=== PATIENT | male | born 1975 | race Caucasian/White ===

== ENCOUNTER 2016-11-01 15:58 | Inpatient (IN) | payer BC, OTHER ==
[~2016-11-01] VITALS: Ht 182.9 cm; Wt 70.0 kg
[2016-11-01] MEDS ORDERED: SODIUM CHLORIDE 0.9% 1L BAG IV* STA (20:50)
[2016-11-01] MEDS ORDERED: morphine 4 MG/ML VIAL IV STA (20:50)
[2016-11-01] MEDS ORDERED: ONDANSETRON 4 MG INJ IV STA (20:50)
[2016-11-01] MEDS ORDERED: LIDOCAINE 1%/EPI (MDV) 20 ML INJ INJ STA (20:50)
[2016-11-01] MEDS ORDERED: ACETAMINOPHEN 325 MG TAB PO ONE (21:00)
[2016-11-01 21:20] LABS: ADD UMIC YES; URINE BILIRUBIN (Dip) NEGATIVE (NEGATIVE); URINE BLOOD (Dip) 2+ (NEGATIVE); URINE COLOR LT. YELLOW (YELLOW); URINE GLUCOSE (Dip) NEGATIVE (NEGATIVE); URINE KETONES (Dip) 15 (NEGATIVE); URINE LEUKOCYTE ESTERASE (Dip) NEGATIVE (NEGATIVE); URINE NITRITE (Dip) NEGATIVE (NEGATIVE); URINE TOTAL PROTEIN (Dip) NEGATIVE (NEGATIVE); URINE UROBILINOGEN (Dip) 0.2 E.U./dL (0.1-1.0)
[2016-11-01 21:25] LABS: HEMATOCRIT 19.3 % (42.0-52.0); MEAN CORPUSCULAR HEMOGLOBIN 34.3 pg (29.0-33.0); MEAN CORPUSCULAR HGB CONC 34.1 g/dl (32.0-37.0); MEAN CORPUSCULAR VOLUME 100.6 fl (82.0-101.0); MEAN PLATELET VOLUME 7.9 fl (7.4-10.4); PLATELET COUNT 306 10^3/UL (140-440); RED BLOOD COUNT 1.91 10^6/ul (4.70-6.10); RED CELL DISTRIBUTION WIDTH 14.2 % (11.5-14.5); UNCORRECTED WBC 8.6 10^3/ul (4.8-10.8); WHITE BLOOD COUNT 8.6 10^3/ul (4.8-10.8)
[2016-11-01 21:26] LABS: ALBUMIN 3.9 g/dl (3.3-4.9)
[2016-11-01 21:27] LABS: INR 1.06; POTASSIUM 3.4 mmol/L (3.5-5.1); PROTIME 13.8 Sec (12.2-14.2); PT RATIO 1.1
[2016-11-01 21:28] LABS: PARTIAL THROMBOPLASTIN TIME 23.4 Sec (25.0-35.0)
[2016-11-01 21:29] LABS: BILIRUBIN,INDIRECT 0.3 mg/dl (0-1.1); BILIRUBIN,TOTAL 0.3 mg/dl (0.2-1.3); CONDITION 1; CREATININE 0.95 mg/dl (0.61-1.24); LH ANALYZER COMMENTS 1
[2016-11-01 21:30] LABS: ALBUMIN/GLOBULIN RATIO 1.5; CALCIUM 8.6 mg/dl (8.4-10.2); TOTAL PROTEIN 6.5 g/dl (6.1-8.1)
[2016-11-01 21:31] LABS: HEMOGLOBIN 6.6 g/dl (14.0-18.0)
[2016-11-01] MEDS ORDERED: SOD CHLORIDE 0.9% 250 ML IV ONE (21:31)
[2016-11-01 21:38] LABS: SQUAMOUS EPITHELIAL CELL,UR RARE
[2016-11-01 21:39] LABS: MUCUS,URINE FEW
--- NOTE | 2016-11-01 21:44 | RADRPT ---
PROCEDURE: XR Chest 1 View. CLINICAL INDICATION: Shortness of breath, sepsis TECHNIQUE: AP view of the chest were obtained. COMPARISON: None. FINDINGS: The cardiomediastinal silhouette is within normal limits. The lungs are hyperexpanded. No consolidat ions are identified. No pneumothorax is seen. Calcified granuloma is identified in the right lower lobe. The osseous structures are intact. Old, healed posterior right sixth rib fracture is seen. IMPRESSION: Hyperexpanded lungs. Calcified granuloma in the right lower lobe. RPTAT: AA .Ivan Sanchez MD, MD Date Time Electronically viewed and signed by .Ivan Sanchez MD, on 11/01/2016 21:43 .P/
[2016-11-01 21:46] LABS: TROPONIN-I 0.127 ng/ml (0.00-0.12)
[2016-11-01] MEDS ORDERED: CEFEPIME 2GM/50 ML (PMX) 50 ML IVPB STA (21:46)
[2016-11-01 21:59] LABS: BASOPHIL # 0.1 10^3/ul (0.0-0.1); LYMPHOCYTES # 0.9 10^3/ul (0.8-2.9); MONOCYTE # 0.5 10^3/ul (0.3-0.9); NEUTROPHIL # 6.9 10^3/ul (1.6-7.5)
[2016-11-01 22:00] LABS: PLATELET ESTIMATE PLT APPEAR ADEQUATE
[2016-11-01] MEDS ORDERED: VANCOMYCIN 1 GM (PMX) 250 ML IVPB ONE (22:00)
--- NOTE | 2016-11-01 22:22 | RADRPT ---
PROCEDURE: CT Head without. CLINICAL INDICATION: Trauma status post Fall. TECHNIQUE: The study was performed utilizing a multi-slice, multidetector CT scanner. Direct spira l 1 mm axial sections were obtained through the head without the use of intravenous contrast materia l. Coronal and sagittal reformations were obtained. The images were reviewed on a PACS workstation. RADIATION DOSE: CTDIvol: 45.0 mGyDLP: L 720.2 mGy-cm COMPARISON: No prior studies are available for comparison. FINDINGS: There is no intracranial hemorrhage, extra-axial fluid collection, mass lesion, midline shift or hyd rocephalus. The ventricles, sulci and cisterns are within normal limits. The white matter is unrem arkable. The manzo-white matter differentiation is preserved. The basal cisterns are patent. The m idline structures are intact. There is minimal soft tissue swelling in the paramedian left vertex w ithout evidence of underlying calvarial fracture. The visualized paranasal sinuses, mastoid air cell s and middle ear cavities are normally aerated. IMPRESSION: 1. No acute intracranial abnormality. No intracranial hemorrhage, extra-axial fluid collection, ma ss lesion or hydrocephalous. 2. Minimal soft tissue swelling in the left parietal vertex without evidence of underlying calvaria l fracture. RPTAT: HGAS .Aníbal Loredo MD, Date Time Electronically viewed and signed by .Aníbal Loredo MD, on 11/01/2016 22:22 .S/
[2016-11-01] MEDS ORDERED: OSELTAMIVIR 75 MG CAP PO ONE (22:30)
[2016-11-01] MEDS ORDERED: ASPIRIN 81 MG TAB PO ONE (22:30)
--- NOTE | 2016-11-01 22:51 | ERA ---
ER Documentation Chief Complaint Date/Time DATE: 11/01/16 TIME: 22:46 Chief Complaint DIZZINESS GUEVARA AND N/V HPI Patient is a 41-year-old male with alcohol abuse who presents saying "I think I have stomach flu". He said that he has had vomiting off and on for the past few days. He also has headache. Had a fever in the ER. The headache has been constant. He had a slip and fall in the shower today and hit his head twice and has dried blood. He denies abdominal pain. Upon review of old medical records this is the patient's first visit to the emergency department. He does not currently have a primary doctor. ROS All systems reviewed and are negative except as per history of present illness. Allergies Allergies: Coded Allergies: No Known Allergy (Unverified , 11/01/16) PMhx/Soc Medical and Surgical Hx: pt denies Medical Hx, pt denies Surgical Hx Hx Alcohol Use: Yes Hx Substance Use: No Hx Tobacco Use: Yes Smoking Status: Current every day smoker FmHx Family History: No diabetes Physical Exam Vitals Vital Signs Date Time Temp Pulse Resp B/P Pulse Ox O2 Delivery O2 Flow Rate FiO2 11/01/16 21:11 99.5 96 16 152/83 100 Room Air 11/01/16 16:02 100.4 116 18 108/56 100 Physical Exam Const: Pale Head: Stellate laceration to the left occiput, linear laceration to the posterior occiput Eyes: Normal Conjunctiva ENT: Normal External Ears, Nose and Mouth. Neck: Full range of motion..~ No meningismus. Resp: Clear to auscultation bilaterally Cardio: Tachycardic rate without murmur Abd: Soft, non tender, non distended. Normal bowel sounds Skin: Stellate laceration to the left occiput, linear laceration to the posterior occiput, pale Back: No midline or flank tenderness Ext: No cyanosis, or edema Neur: Awake and alert Psych: Normal Mood and Affect Result Diagram: 11/01/16 2100 11/01/16 2100 Results 24 hrs Laboratory Tests Test 11/01/16 21:00 Activated Partial Thromboplast Time 23.4Sec Alanine Aminotransferase (ALT/SGPT) 32IU/L Albumin 3.9g/dl Albumin/Globulin Ratio 1.50 Alkaline Phosphatase 35IU/L Anion Gap 19 Aspartate Amino Transf (AST/SGOT) 37IU/L Band Neutrophils % 2.0% Basophils # 0.110^3/ul Basophils % 1.0% Blood Morphology Comment Blood Urea Nitrogen 21mg/dl Calcium Level 8.6mg/dl Carbon Dioxide Level 25mmol/L Chloride Level 102mmol/L Creatinine 0.95mg/dl Direct Bilirubin 0.00mg/dl Globulin 2.60g/dl Glucose Level 134mg/dl Hematocrit 19.3% Hemoglobin 6.6g/dl INR International Normalized Ratio 1.06 Indirect Bilirubin 0.3mg/dl Lactic Acid Level 3.0mmol/L Lymphocytes # 0.910^3/ul Lymphocytes % 11.0% Mean Corpuscular Hemoglobin 34.3pg Mean Corpuscular Hemoglobin Concent 34.1g/dl Mean Corpuscular Volume 100.6fl Mean Platelet Volume 7.9fl Monocytes # 0.510^3/ul Monocytes % 6.0% Neutrophils # 6.910^3/ul Neutrophils % 80.0% Platelet Count 82050^3/UL Platelet Estimate PLT APPEAR ADEQUATE Potassium Level 3.4mmol/L Prothrombin Time 13.8Sec Prothrombin Time Ratio 1.1 Red Blood Count 1.9110^6/ul Red Cell Distribution Width 14.2% Sodium Level 143mmol/L Total Bilirubin 0.3mg/dl Total Protein 6.5g/dl Troponin I 0.127ng/ml Urine Bilirubin NEGATIVE Urine Clarity CLEAR Urine Color LT. YELLOW Urine Glucose NEGATIVE% Urine Hemoglobin 2+ Urine Ketones 15 Urine Leukocyte Esterase NEGATIVE Urine Microscopic RBC 2-5/HPF Urine Microscopic WBC NONE SEEN/HPF Urine Mucus FEW Urine Nitrite NEGATIVE Urine Specific [place] 1.020 Urine Squamous Epithelial Cells RARE Urine Total Protein NEGATIVE Urine Urobilinogen 0.2 E.U./dL Urine pH 6.0 White Blood Count 8.610^3/ul Current Medications Medications (Trade) Dose Ordered Sig/Laura Route PRN Reason Start Time Stop Time Status Last Admin Dose Admin Sodium Chloride (NS) 2,170 ml BOLUS OVER 2 HOURS STAT IV* 11/01/16 20:50 11/01/16 20:53 DC 11/01/16 21:49 Lidocaine/ Epinephrine (Xylocaine 1%/ Epi (Mdv) 20 ml) 20 ml ONCE STAT INJ 11/01/16 20:50 11/01/16 20:53 DC Morphine Sulfate (morphine) 4 mg ONCE STAT IV 11/01/16 20:50 11/01/16 20:53 DC 11/01/16 21:49 Ondansetron HCl (Zofran Inj) 4 mg ONCE STAT IV 11/01/16 20:50 11/01/16 20:53 DC 11/01/16 21:49 Acetaminophen 650 mg 650 mg ONCE ONCE PO 11/01/16 21:00 11/01/16 21:01 DC 11/01/16 21:49 Sodium Chloride 250 ml @ 0 mls/hr Q0M ONCE IV 11/01/16 21:31 11/01/16 21:32 DC Cefepime HCl 50 ml @ 100 mls/hr ONCE STAT IVPB 11/01/16 21:46 11/01/16 22:15 DC 11/01/16 22:00 Vancomycin HCl (Vancocin) 250 ml @ 125 mls/hr ONCE ONCE IVPB 11/01/16 22:00 11/01/16 23:59 11/01/16 22:44 Oseltamivir Phosphate (Tamiflu) 75 mg ONCE ONCE PO 11/01/16 22:30 11/01/16 22:32 DC 11/01/16 22:44 Aspirin (Aspirin) 162 mg ONCE ONCE PO 11/01/16 22:30 11/01/16 22:32 DC 11/01/16 22:44 Ondansetron HCl (Zofran Inj) 4 mg ER BRIDGE PRN IV NAUSEA AND/OR VOMITING 11/01/16 23:00 11/02/16 22:59 Acetaminophen (Tylenol Tab) 650 mg ER BRIDGE PRN PO MILD PAIN/FEVER 11/01/16 23:00 11/02/16 22:59 Procedures/MDM CT head negative for skull fracture or bleed per radiology. Chest x-ray negative for pneumonia per radiology. EKG read by me: Rate/Rhythm: Sinus tachycardia rate of 109 Intervals: Normal Impression: Sinus tachycardia without evidence of ischemia Admit MDM: Patient's infectious symptoms have not stabilized and the patient is at risk of rapid decompensation. The patient will be admitted for careful hydration, antibiotic therapy, and infectious source control. Severe Sepsis criteria: Infectious source: Influenza End organ damage indicated by: Lactate greater than 3 Sepsis Management: Time of recognition of sepsis: 21:00 Within 3 hours of recognition: Blood cultures x 2 before broad-spectrum antibiotics: Yes 30 ml/kg NS bolus Completed Initial lactate 3.0 Repeat lactate pending Time of recognition of septic shock: No septic shock Septic Shock Assessment: Any lactic acid > 4.0 No Persistent hypotension (SBP < 90 or 40 mmHg drop, MAP < 65) despite 30 mL/kg IV fluid bolus No Volume Re-assessment for Septic Shock (post 30 ml/kg bolus): No septic shock at this time Persistent Hypotension Treatment: Comfort care No Central line Not Required Vasopressor started Not required I considered further perfusion assessment with CVP measurement, SCVO2, bedside ultrasound volume assessment, passive leg raise, trial of further fluid bolus. And proceeded with 30 ml/kg fluid bolus of NSS, broad spectrum antibiotics, and admission. The patient was also given Tamiflu for influenza. I did repair 2 lacerations to the scalp with cody. The patient has anemia was given 2 units of packed red blood cells. The patient was given aspirin for a positive troponin. I am concerned for an STEMI. His EKG does not show any signs of ST elevations. Accepting Care Team Current data and ongoing care discussed. Admitting Physician: Dr. Ledesma as the patient does not have a primary doctor and is never been here before Indirect Fire Infantryman(s): None Outstanding Data: Culture results and repeat lactic acid Critical Care: Critical care time 35 minutes excluding all billable procedures Emergent fluid management while maintaining close respiratory support. Provision of immediate and broad-spectrum antibiotic therapy. Simultaneous assessment for possible sources in order to direct targeted therapy. Consideration for invasive and chemical support to prevent cardiopulmonary collapse. Laceration #1 repair by me: Anesthesia: 1% lidocaine with epinephrine locally Location: Posterior occiput Tendon/Joint/Nerves: No injury Foreign body: None detected after copious irrigation and exploration Technique: [place] Complexity: No subcutaneous sutures/mucosal repair/ edge excision Post Closure Length: 4 cm Laceration #2 repair by me: Anesthesia: 1% lidocaine with epinephrine locally Location: Left occiput Tendon/Joint/Nerves: No injury Foreign body: None detected after copious irrigation and exploration Technique: [place] Complexity: Complexes this was a stellate laceration Post Closure Length: 5 cm Departure Diagnosis: Primary Impression: NSTEMI (non-ST elevated myocardial infarction) Additional Impressions: Dizziness Laceration Anemia Qualified Code: D64.9 - Anemia, unspecified type Severe sepsis Influenza Condition: Serious MARIO HANNAH MD Nov 01, 2016 22:51
[2016-11-01] MEDS ORDERED: ONDANSETRON 4 MG INJ IV PRN (23:00)
[2016-11-01] MEDS ORDERED: ACETAMINOPHEN 325 MG TAB PO PRN (23:00)
[2016-11-02] MEDS ORDERED: ZOLPIDEM 5 MG TAB PO PRN
[2016-11-02] MEDS ORDERED: DOCUSATE SODIUM 100 MG CAP PO PRN
[2016-11-02] MEDS ORDERED: NACL 0.9% 3 ML SYG IV SCH
[2016-11-02] MEDS ORDERED: ONDANSETRON 4 MG INJ IV PRN
[2016-11-02] MEDS ORDERED: morphine 2 MG INJ IV PRN
[2016-11-02] MEDS ORDERED: DIPHENHYDRAMINE 50 MG INJ ONE (00:29)
[2016-11-02] MEDS ORDERED: ACETAMINOPHEN 325 MG TAB PO ONE (00:30)
[2016-11-02] MEDS ORDERED: DIPHENHYDRAMINE 50 MG INJ IV ONE (00:30)
[2016-11-02] MEDS ORDERED: PANTOPRAZOLE 40 MG INJ IV SCH (06:00)
[2016-11-02] MEDS: SOD CHLORIDE 0.45% 1,000 ML IV SCH ×3 (06:04→20:18)
[2016-11-02 06:19] LABS: BASOPHILS % 0.3 % (0.0-2.0); HEMATOCRIT 17.3 % (42.0-52.0); LYMPHOCYTES # 0.8 10^3/ul (0.8-2.9); LYMPHOCYTES % 15.1 % (15.0-51.0); MEAN CORPUSCULAR HEMOGLOBIN 33.6 pg (29.0-33.0); MEAN CORPUSCULAR HGB CONC 35.2 g/dl (32.0-37.0); MEAN CORPUSCULAR VOLUME 95.5 fl (82.0-101.0); MONOCYTE # 0.6 10^3/ul (0.3-0.9); MONOCYTES % 10.3 % (0.0-11.0); NEUTROPHILS % 74.3 % (39.0-77.0); PLATELET COUNT 186 10^3/UL (140-440); RED BLOOD COUNT 1.81 10^6/ul (4.70-6.10); RED CELL DISTRIBUTION WIDTH 16.9 % (11.5-14.5); UNCORRECTED WBC 5.3 10^3/ul (4.8-10.8); WHITE BLOOD COUNT 5.3 10^3/ul (4.8-10.8)
[2016-11-02 06:27] LABS: CONDITION 1; LH ANALYZER COMMENTS 1
[2016-11-02 06:28] LABS: ALBUMIN 2.4 g/dl (3.3-4.9)
[2016-11-02 06:29] LABS: HEMOGLOBIN 6.1 g/dl (14.0-18.0); POTASSIUM 3.4 mmol/L (3.5-5.1)
[2016-11-02 06:30] LABS: CREATININE 0.75 mg/dl (0.61-1.24)
[2016-11-02 06:31] LABS: ALBUMIN/GLOBULIN RATIO 1.14; BILIRUBIN,INDIRECT 0.8 mg/dl (0-1.1); BILIRUBIN,TOTAL 0.8 mg/dl (0.2-1.3); CALCIUM 6.6 mg/dl (8.4-10.2); PHOSPHORUS 3.3 mg/dl (2.5-4.9); TOTAL PROTEIN 4.5 g/dl (6.1-8.1)
[2016-11-02 06:32] LABS: CHOL/HDL RATIO 3.1 RATIO; MAGNESIUM 1.8 mg/dl (1.7-2.5)
[2016-11-02] MEDS ORDERED: SOD CHLORIDE 0.9% 250 ML IV* ONE (07:04)
[2016-11-02] MEDS ORDERED: POTASSIUM CHLORIDE (SR) 20 MEQ TAB PO ONE (07:05)
[2016-11-02] MEDS ORDERED: LORAZEPAM 2 MG INJ IV PRN (08:00)
--- NOTE | 2016-11-02 09:02 | RADRPT ---
PROCEDURE: Retroperitoneal US. CLINICAL INDICATION: pain, family history of polycystic kidneys. TECHNIQUE: Multiple sonographic images of the kidneys and retroperitoneum were obtained. The imag es were reviewed on a PACS workstation. COMPARISON: No prior studies are available for comparison. FINDINGS: The kidneys are normal in size, contour, cortical thickness. There are prominent pyramids bilaterally. The right kidney measures 9.9 cm. The left kidney measures 10.7 cm. No kidney stones are visualized. There is no evidence for hydronephrosis. The urinary bladder is normal. The visualized portions of the aorta and IVC are within normal limits. RPTAT: AA IMPRESSION: Prominent pyramids bilaterally. No evidence of kidney cysts. .Grzegorz Beckham MD, MD Date Time Electronically viewed and signed by .Grzegorz Beckham MD, on 11/02/2016 09:02 .S/
[2016-11-02 09:24] LABS: FOLATE 10.7 ng/ml (2.8-20.0)
--- NOTE | 2016-11-02 09:47 | HP ---
DATE OF ADMISSION: 11/01/2016 TIME: 7:45 a.m. CHIEF COMPLAINT: Dizziness, cough as well as a fall. HISTORY OF PRESENT ILLNESS: The patient is a 41-year-old male with a past medical history of alcoho l abuse. The patient was in otherwise fair health until this past week when he began to develop diz ziness, malaise, and cough. He felt that he had an upper respiratory viral infection. He states th at he was going to come to the ER for further evaluation of his dizziness when he subsequently synco pized in the shower. He did have a laceration in his arm. The patient at this time does report per sistent dizziness. He does state that his stool was dark yesterday, but denies any nausea, vomiting , denies any upper GI bleeding. He states that his last drink was approximately a week ago and he i s trying to stop drinking. The patient states that his malaise has improved. He has no other compl aints at this time. PAST MEDICAL HISTORY: Alcohol abuse. PAST SURGICAL HISTORY: Denies. HOME MEDICATIONS: None reported. ALLERGIES: NO KNOWN DRUG ALLERGIES. FAMILY HISTORY: Sister with polycystic kidney disease. He states that he does not have it. SOCIAL HISTORY: Denies any drug abuse, quit smoking recently. He does have a history of alcohol ab use with daily drinking, but states his last drink was 1 week ago. REVIEW OF SYSTEMS: A 12-point review of systems negative except for that as discussed in HPI. PHYSICAL EXAMINATION: VITAL SIGNS: T-current 99.0, T-max is 100.2, pulse , respiratory rate is 19, BP is 117/73, sat uration 99% on room air. GENERAL: No acute distress, alert and oriented. HEENT: Normocephalic, atraumatic. CHEST: Clear to auscultation. CARDIOVASCULAR: Regular rate and rhythm. ABDOMEN: Nondistended, nontender, soft. EXTREMITIES: No clubbing, cyanosis, or edema. LABORATORIES: White count 8.6, hemoglobin 6.6, platelets are 306. Chemistry: Sodium is 143, potas sium is 2.4, anion gap 19, BUN 21, lactic acid was 2.0, now down to 0.9. Troponin 0.127. INR is 1. 06. UA is within normal limits except for 2+ hemoglobin. DIAGNOSTICS: Chest x-ray shows hyperexpanded lungs, likely granuloma in the right lower lobe. Brai n CT shows no acute intracranial abnormality, no intracranial hemorrhage or fluid collection, minima l soft tissue swelling on the left parietal vertex without evidence of underlying calvarial fracture . ASSESSMENT AND PLAN: 1. Syncope with dizziness secondary to a severe anemia. Source of anemia could be from malnutritio n from his history of alcohol abuse versus GI bleed as he does report melena versus polycystic kidne y disease, and his sister does have that diagnosis. We will obtain a GI consultation. We will chec k a stool occult blood. Will also obtain a renal ultrasound to evaluate for possible kidney disease . Will transfuse the patient 2 units of packed red blood cells. Hemoglobin continues to be low, wi ll transfuse another 2. Will follow up on the occult blood sample. Will also obtain a 2-D echo to rule out cardiac causes. Will check a folate and B12 levels. 2. Fever with malaise. The patient may have a viral syndrome. Will test for influenza. Will star t the patient on Tamiflu. 3. Lacerations in the posterior occiput and left occiput status post repair by the ER physician. 4. Troponin elevation is likely secondary to demand ischemia. We will get a cardiology consultatio n. We will trend the troponins. 5. History of alcohol abuse. I have advised the patient to refrain from further alcohol abuse. He states that he is trying to quit. Will give the patient a banana bag as well as Ativan p.r.n. Cur rently he shows no signs of withdrawal. 6. Prophylaxis: SCDs. Dictated By: YANETH AGUIAR MD BS/NTS Conf#: [id number] DID#: [id number]
[2016-11-02] MEDS: OSELTAMIVIR 75 MG CAP PO SCH ×2 (10:48→21:27)
--- NOTE | 2016-11-02 11:37 | RADRPT ---
Echocardiogram Report Patient Name: AFTAB SCALES Gender: Male Date: 1975 Study Date: 02-Nov-2016 Burr Picker: Lindsey Knowles RDCS Location: E Ref. Physician: YANETH AGUIAR Quality: Good Procedures: Transthoracic echocardiogram with complete 2D, M-Mode, and doppler examination. Indications: Syncope. 2D/M Mode Doppler Measurement Value Normal Ranges Measurement Value Normal Ranges LVIDd 2D 5.4 3.5 - 5.6 cm AV Peak [place]row 1.4 m/sec LVIDs 2D 2.6 2.1 - 4.1 cm AV Peak PG 7.8 mmHg LVPWd 2D 0.7 0.6 - 1.1 cm LVOT Peak [place] 1.2 m/sec IVSd 2D 0.8 0.6 - 1.1 cm LVOT Peak PG 5.8 mmHg AoR Diam 2D 3.0 2.0 - 3.7 cm MV E Peak [place] 0.9 m/sec EDV 2D 143.5 cm3 MV A Peak [place] 0.4 m/sec ESV 2D 17.9 cm3 MV E/A 2.1 LA Dimen 2D 3.2 2.3 - 4.0 cm MV Decel Time 123 msec MV Decel Marin 7 MV E/A 2.1 Findings Left Ventricle: Normal left ventricular systolic function. Normal left ventricular cavity size. Normal left ventricular wall thickness. Ejection fraction is visually estimated at 55 %. Right Ventricle: Normal right ventricular size. Normal right ventricular systolic function. Left Atrium: The left atrium is normal in size. Right Atrium: The right atrium is normal in size. Mitral Valve: Normal appearance of the mitral valve. Mild mitral valve regurgitation. Aortic Valve: Normal appearance of the aortic valve. Mild aortic valve regurgitation. Tricuspid Valve: Unable to obtain RVSP due to minimal presence of tricuspid regurgitation. Pericardium: Normal pericardium with no significant pericardial effusion. Aorta: Normal aortic root. IVC: Normal size and no respiratory collapse consistent with elevated right atrial pressure. Conclusions 1.Normal left ventricular systolic function. Normal left ventricular cavity size. Normal left ventricular wall thickness. Ejection fraction is visually estimated at 55 %. 2.Mild aortic valve regurgitation. 3.Unable to obtain RVSP due to minimal presence of tricuspid regurgitation. Electronically Signed By: Parviz Gonsalves 02-Nov-2016 11:36:45 -0800 Patient Name: AFTAB SCALES Study Date: 02-Nov-2016 [id number]
--- NOTE | 2016-11-02 11:47 | CONS ---
Date/Time of Note Date/Time of Note DATE: 11/02/16 TIME: 11:41 Assessment/Plan Assessment/Plan Chief Complaint/Hosp Course NSTEMI: Mild elevation. Type II in setting of severe anemia and GI bleed. Echo normal. Not a candidate for stress testing or further workup at this time. Can be considered as outpt Fall: per pt no syncope, likely from anemia Anemia: likely from GI bleed with black stools. s/p 3 units PRBCs. GI eval pending Alcohol abuse Tobaccos use -no ASA or anticoagulation -no statin until liver better evaluated -no BB Problems: Consultation Date/Type/Reason Admit Date/Time Date of Consultation: Nov 02, 2016 Type of Consultation: Cardiology Reason for Consultation NSTEMI Referring Provider: YANETH AGUIAR Hx of Present Illness 41 yo M with a h/o alcohol abuse, tobacco use, who presented with dizziness, weakness, and fall and was found to have severe anemia likely secondary to upper GI bleed. The patient notes that he has been having black stools for 2-3 days. He has been feeling really weak and dizzy. He was going to come to the ER but wanted to shower first. In the shower he felt very weak and fell down hitting his head. He denies losing consciousness. No chest pain or SOB now or in general. per HPI Social History Smoking Status: Current every day smoker Exam/Review of Systems Vital Signs Vitals Vital Signs Date Time Temp Pulse Resp B/P Pulse Ox O2 Delivery O2 Flow Rate FiO2 11/02/16 11:00 99.6 65 18 116/69 99 Room Air 11/02/16 01:11 2.0 Exam Constitutional: alert, oriented Psych: no complaints Head: atraumatic, normocephalic Neck: No jvd Respiratory: clear to auscultation Cardiovascular: regular rate and rhythm, No edema Gastrointestinal: soft, No non-tender Extremities: normal pulses Neurological: nl mental status, nl speech Results Result Diagram: 11/02/16 0544 11/02/16 0544 Results 24 hrs Laboratory Tests Test 11/01/16 21:00 11/01/16 22:30 11/02/16 00:00 11/02/16 01:50 Activated Partial Thromboplast Time 23.4 L Alanine Aminotransferase (ALT/SGPT) 32 Albumin 3.9 Albumin/Globulin Ratio 1.50 Alkaline Phosphatase 35 L Anion Gap 19 H Aspartate Amino Transf (AST/SGOT) 37 Band Neutrophils % 2.0 Basophils # 0.1 Basophils % 1.0 Blood Morphology Comment Blood Urea Nitrogen 21 H Calcium Level 8.6 Carbon Dioxide Level 25 Chloride Level 102 Creatinine 0.95 Direct Bilirubin 0.00 Globulin 2.60 Glucose Level 134 Hematocrit 19.3 L Hemoglobin 6.6 *L INR International Normalized Ratio 1.06 Indirect Bilirubin 0.3 Lactic Acid Level 3.0 H 0.9 1.0 Lymphocytes # 0.9 Lymphocytes % 11.0 L Mean Corpuscular Hemoglobin 34.3 H Mean Corpuscular Hemoglobin Concent 34.1 Mean Corpuscular Volume 100.6 Mean Platelet Volume 7.9 Monocytes # 0.5 Monocytes % 6.0 Neutrophils # 6.9 Neutrophils % 80.0 H Platelet Count 306 Platelet Estimate PLT APPEAR ADEQUATE Potassium Level 3.4 L Prothrombin Time 13.8 Prothrombin Time Ratio 1.1 Red Blood Count 1.91 L Red Cell Distribution Width 14.2 Sodium Level 143 Total Bilirubin 0.3 Total Protein 6.5 Troponin I 0.127 *H 0.124 *H Urine Bilirubin NEGATIVE Urine Clarity CLEAR Urine Color LT. YELLOW Urine Glucose NEGATIVE Urine Hemoglobin 2+ H Urine Ketones 15 Urine Leukocyte Esterase NEGATIVE Urine Microscopic RBC 2-5 Urine Microscopic WBC NONE SEEN Urine Mucus FEW Urine Nitrite NEGATIVE Urine Specific [place] 1.020 Urine Squamous Epithelial Cells RARE Urine Total Protein NEGATIVE Urine Urobilinogen 0.2 E.U./dL Urine pH 6.0 White Blood Count 8.6 Test 11/02/16 05:44 Alanine Aminotransferase (ALT/SGPT) 28 Albumin 2.4 #L Albumin/Globulin Ratio 1.14 Alkaline Phosphatase 23 L Anion Gap 10 # Aspartate Amino Transf (AST/SGOT) 28 Basophils # 0.0 Basophils % 0.3 Blood Morphology Comment Blood Urea Nitrogen 16 Calcium Level 6.6 L Carbon Dioxide Level 25 Chloride Level 109 Cholesterol Level 83 L Cholesterol/HDL Ratio 3.1 Creatinine 0.75 Direct Bilirubin 0.00 Eosinophils # 0.0 Eosinophils % 0.0 Folate 10.7 Globulin 2.10 Glucose Level 102 HDL Cholesterol 26 L Hematocrit 17.3 L Hemoglobin 6.1 *L Hemoglobin A1c 5.8 Indirect Bilirubin 0.8 LDL Cholesterol, Calculated 44 Lymphocytes # 0.8 Lymphocytes % 15.1 Magnesium Level 1.8 Mean Corpuscular Hemoglobin 33.6 H Mean Corpuscular Hemoglobin Concent 35.2 Mean Corpuscular Volume 95.5 Mean Platelet Volume 8.0 Monocytes # 0.6 Monocytes % 10.3 Neutrophils # 4.0 Neutrophils % 74.3 Nucleated Red Blood Cells # 0.0 Nucleated Red Blood Cells % 0.0 Phosphorus Level 3.3 Platelet Count 186 # Potassium Level 3.4 L Red Blood Count 1.81 L Red Cell Distribution Width 16.9 H Sodium Level 141 Total Bilirubin 0.8 Total Protein 4.5 #L Triglycerides Level 67 Troponin I 0.052 Vitamin B12 Level 905 White Blood Count 5.3 # Medications Medications Current Medications Sodium Chloride (1/2 NS) 1,000 ml @ 100 mls/hr Q10H IV Last administered on 06:04; Admin Dose 100 MLS/HR; Start 11/01/16 at 23:47 Ondansetron HCl (Zofran Inj) 4 mg Q6H PRN IV NAUSEA AND/OR VOMITING; Start 11/02 at 00:00 Morphine Sulfate (morphine) 2 mg Q4H PRN IV SEVERE PAIN LEVEL 7-10; Start at 00:00 Docusate Sodium (Colace) 100 mg Q12H PRN PO CONSTIPATION; Start 11/02/16 at 00: 00 Zolpidem Tartrate (Ambien) 5 mg QHS PRN PO SLEEP; Start 11/02/16 at 00:00 Oseltamivir Phosphate 75 mg 75 mg BID PO Last administered on 11/02/16 10:48; Admin Dose 75 MG; Start 11/02/16 at 09:00 Multivitamins/ Thiamine HCl/ Folic Acid/Sodium Chloride (Mvi-12 Adult/ Vitamin B1/Folic Acid/NS) 1,011.2 ml @ 125 mls/ hr DAILY@09 IVPB ; Start 11/02/16 at 10: 00 Lorazepam 1 mg 1 mg Q4 PRN IV CONTROL WITHDRAWAL SYMPTOMS; Start 11/02/16 at 08: 00 Pantoprazole/ Sodium Chloride (Protonix Iv/NS) 100 ml @ 10 mls/hr Q10H IV ; Start 11/02/16 at 12:00 OSWALDO DELAROSA Nov 02, 2016 11:46
[2016-11-02] MEDS ORDERED: POTASSIUM CHLORIDE (SR) 10 MEQ TAB PO ONE (12:00)
[2016-11-02] MEDS: MULTIVITAMINS 10 ML, THIAMINE 100 MG, FOLIC ACID 1 MG in SOD CHLORIDE 0.9% 1,000 ML IVPB SCH (12:01)
[2016-11-02 12:46] LABS: IRON 41 ug/dl (35-150)
[2016-11-02 12:55] LABS: TOTAL IRON BINDING CAPACITY 237 ug/dl (241-421)
[2016-11-02 13:41] VITALS: TEMP 100.1
[2016-11-02 14:28] VITALS: BP 111/74; RESP 20
[2016-11-02 14:34] VITALS: Ht 182.9 cm; Wt 70.0 kg
--- NOTE | 2016-11-02 14:54 | QN ---
Documentation Comment Reviewed labs. Examined the patient. Explained the plan of care to the patient. Case discussed with Dr. Cortez. MATTHEW BURROUGHS NP Nov 02, 2016 14:54
[2016-11-02 15:20] VITALS: BP 114/71; RESP 20
[2016-11-02 16:42] VITALS: PULSE 65
[2016-11-02] MEDS: PANTOPRAZOLE IV 80 MG in SOD CHLORIDE 0.9% 100 ML IV SCH (16:42)
[2016-11-02 17:38] LABS: HEMATOCRIT 23.3 % (42.0-52.0); HEMOGLOBIN 7.9 g/dl (14.0-18.0)
--- NOTE | 2016-11-02 19:15 | CONS ---
Date/Time of Note Date/Time of Note DATE: 11/02/16 TIME: 19:12 Assessment/Plan Assessment/Plan Additional Assessment/Plan Anemia, evaluate for UGIB * Monitor H&H every 6 hours, transfuse 2 units for hemoglobin less than 7.5 * Stool OB 1 * PPI therapy * Recommend EGD, patient declines procedure Syncope * Likely secondary to anemia EtOH abuse * Encourage abstinence Lacerations in the posterior occiput and left occiput status post repair Fever with malaise Further recommendations depend on clinical course Consultation Date/Type/Reason Admit Date/Time Type of Consultation: Gastroenterology Reason for Consultation Anemia Hx of Present Illness 41-year-old male that presented to ED with complaints of dizziness, malaise, cough, and fall in shower. Patient's workup of dizziness revealed hemoglobin of 6.6. Patient is status post 4 units PRBC and currently hemoglobin is 7.1. Patient reports remote history of intermittent dark stools and reports may be 2- 3 occurrences in remote history. Patient denies nausea, vomiting, hematemesis, diarrhea, constipation, sick contacts, travel outside the [place]. Patient does report a history of EtOH abuse and states he is working on abstinence. Presently patient declines further endoscopic workup. . Psychological: no complaints Past Medical History Medical History: no pertinent history Past Surgical History Past Surgical Hx: no surgical history Social History Alcohol Use: heavy Smoking Status: Former smoker Exam/Review of Systems Vital Signs Vitals Vital Signs Date Time Temp Pulse Resp B/P Pulse Ox O2 Delivery O2 Flow Rate FiO2 11/02/16 16:42 65 11/02/16 15:20 98.1 20 114/71 100 11/02/16 13:41 Room Air 11/02/16 01:11 2.0 Exam Constitutional: alert, oriented, well developed Head: normocephalic Eyes: EOMI ENMT: nl external ears & nose, nl lips & teeth, nl nasal mucosa & septum Respiratory: normal air movement Cardiovascular: regular rate and rhythm Gastrointestinal: non-tender, soft Neurological: STEAMBOAT PILOT II-XII intact Results Result Diagram: 11/02/16 1700 11/02/16 0544 Results 24 hrs Laboratory Tests Test 11/01/16 21:00 11/01/16 22:30 11/02/16 00:00 11/02/16 01:50 Activated Partial Thromboplast Time 23.4 L Alanine Aminotransferase (ALT/SGPT) 32 Albumin 3.9 Albumin/Globulin Ratio 1.50 Alkaline Phosphatase 35 L Anion Gap 19 H Aspartate Amino Transf (AST/SGOT) 37 Band Neutrophils % 2.0 Basophils # 0.1 Basophils % 1.0 Blood Morphology Comment Blood Urea Nitrogen 21 H Calcium Level 8.6 Carbon Dioxide Level 25 Chloride Level 102 Creatinine 0.95 Direct Bilirubin 0.00 Globulin 2.60 Glucose Level 134 Hematocrit 19.3 L Hemoglobin 6.6 *L INR International Normalized Ratio 1.06 Indirect Bilirubin 0.3 Lactic Acid Level 3.0 H 0.9 1.0 Lymphocytes # 0.9 Lymphocytes % 11.0 L Mean Corpuscular Hemoglobin 34.3 H Mean Corpuscular Hemoglobin Concent 34.1 Mean Corpuscular Volume 100.6 Mean Platelet Volume 7.9 Monocytes # 0.5 Monocytes % 6.0 Neutrophils # 6.9 Neutrophils % 80.0 H Platelet Count 306 Platelet Estimate PLT APPEAR ADEQUATE Potassium Level 3.4 L Prothrombin Time 13.8 Prothrombin Time Ratio 1.1 Red Blood Count 1.91 L Red Cell Distribution Width 14.2 Sodium Level 143 Total Bilirubin 0.3 Total Protein 6.5 Troponin I 0.127 *H 0.124 *H Urine Bilirubin NEGATIVE Urine Clarity CLEAR Urine Color LT. YELLOW Urine Glucose NEGATIVE Urine Hemoglobin 2+ H Urine Ketones 15 Urine Leukocyte Esterase NEGATIVE Urine Microscopic RBC 2-5 Urine Microscopic WBC NONE SEEN Urine Mucus FEW Urine Nitrite NEGATIVE Urine Specific Morrison 1.020 Urine Squamous Epithelial Cells RARE Urine Total Protein NEGATIVE Urine Urobilinogen 0.2 E.U./dL Urine pH 6.0 White Blood Count 8.6 Test 11/02/16 05:44 11/02/16 12:07 11/02/16 12:50 11/02/16 17:00 Alanine Aminotransferase (ALT/SGPT) 28 Albumin 2.4 #L Albumin/Globulin Ratio 1.14 Alkaline Phosphatase 23 L Anion Gap 10 # Aspartate Amino Transf (AST/SGOT) 28 Basophils # 0.0 Basophils % 0.3 Blood Morphology Comment Blood Urea Nitrogen 16 Calcium Level 6.6 L Carbon Dioxide Level 25 Chloride Level 109 Cholesterol Level 83 L Cholesterol/HDL Ratio 3.1 Creatinine 0.75 Direct Bilirubin 0.00 Eosinophils # 0.0 Eosinophils % 0.0 Folate 10.7 Globulin 2.10 Glucose Level 102 HDL Cholesterol 26 L Hematocrit 17.3 L 23.3 #L Hemoglobin 6.1 *L 7.9 #L Hemoglobin A1c 5.8 Indirect Bilirubin 0.8 LDL Cholesterol, Calculated 44 Lymphocytes # 0.8 Lymphocytes % 15.1 Magnesium Level 1.8 Mean Corpuscular Hemoglobin 33.6 H Mean Corpuscular Hemoglobin Concent 35.2 Mean Corpuscular Volume 95.5 Mean Platelet Volume 8.0 Monocytes # 0.6 Monocytes % 10.3 Neutrophils # 4.0 Neutrophils % 74.3 Nucleated Red Blood Cells # 0.0 Nucleated Red Blood Cells % 0.0 Phosphorus Level 3.3 Platelet Count 186 # Potassium Level 3.4 L Red Blood Count 1.81 L Red Cell Distribution Width 16.9 H Sodium Level 141 Total Bilirubin 0.8 Total Protein 4.5 #L Triglycerides Level 67 Troponin I 0.052 0.016 Vitamin B12 Level 905 White Blood Count 5.3 # Iron Level 41 Percent Iron Saturation 17 L Total Iron Binding Capacity 237 L Medications Medications Current Medications Sodium Chloride (1/2 NS) 1,000 ml @ 100 mls/hr Q10H IV Last administered on 06:04; Admin Dose 100 MLS/HR; Start 11/01/16 at 23:47 Ondansetron HCl (Zofran Inj) 4 mg Q6H PRN IV NAUSEA AND/OR VOMITING; Start 11/02 at 00:00 Morphine Sulfate (morphine) 2 mg Q4H PRN IV SEVERE PAIN LEVEL 7-10; Start at 00:00 Docusate Sodium (Colace) 100 mg Q12H PRN PO CONSTIPATION; Start 11/02/16 at 00: 00 Zolpidem Tartrate (Ambien) 5 mg QHS PRN PO SLEEP; Start 11/02/16 at 00:00 Oseltamivir Phosphate 75 mg 75 mg BID PO Last administered on 11/02/16 10:48; Admin Dose 75 MG; Start 11/02/16 at 09:00 Multivitamins/ Thiamine HCl/ Folic Acid/Sodium Chloride (Mvi-12 Adult/ Vitamin B1/Folic Acid/NS) 1,011.2 ml @ 125 mls/ hr DAILY@09 IVPB Last administered on 11/02/16 12:01; Admin Dose 125 MLS/HR; Start 11/02/16 at 10:00 Lorazepam 1 mg 1 mg Q4 PRN IV CONTROL WITHDRAWAL SYMPTOMS; Start 11/02/16 at 08: 00 Pantoprazole/ Sodium Chloride (Protonix Iv/NS) 100 ml @ 10 mls/hr Q10H IV Last administered on 11/02/16t 16:42; Admin Dose 10 MLS/HR; Start 11/02/16 at 12: 00 LESTER VARMA MD Nov 02, 2016 19:15
[2016-11-02 20:20] LABS: HEMATOCRIT 21.2 % (42.0-52.0); HEMOGLOBIN 7.2 g/dl (14.0-18.0)
[2016-11-02 20:21] VITALS: BP 124/59; RESP 19
[2016-11-02 20:22] VITALS: PULSE 69
[2016-11-02] MEDS ORDERED: OSELTAMIVIR 75 MG CAP PO SCH (21:00)
[2016-11-03] VITALS (15 sets, daily range): BP systolic 104–120; BP diastolic 60–75; PULSE 67–84; RESP 19–20
[2016-11-03] MEDS: PANTOPRAZOLE IV 80 MG in SOD CHLORIDE 0.9% 100 ML IV SCH ×4 (01:17→22:16)
[2016-11-03 03:47] LABS: BASOPHILS % 0.3 % (0.0-2.0); EOSINOPHILS % 0.2 % (0.0-7.0); MONOCYTE # 0.5 10^3/ul (0.3-0.9); PLATELET COUNT 183 10^3/UL (140-440); UNCORRECTED WBC 4.9 10^3/ul (4.8-10.8); WHITE BLOOD COUNT 4.9 10^3/ul (4.8-10.8)
[2016-11-03 03:51] LABS: LYMPHOCYTES % 20.5 % (15.0-51.0); MEAN CORPUSCULAR HEMOGLOBIN 32.1 pg (29.0-33.0); MEAN CORPUSCULAR HGB CONC 34.1 g/dl (32.0-37.0); MEAN CORPUSCULAR VOLUME 94.2 fl (82.0-101.0); MEAN PLATELET VOLUME 7.6 fl (7.4-10.4); MONOCYTES % 10.7 % (0.0-11.0); NEUTROPHIL # 3.3 10^3/ul (1.6-7.5); NEUTROPHILS % 68.3 % (39.0-77.0); RED CELL DISTRIBUTION WIDTH 17.6 % (11.5-14.5)
[2016-11-03 03:58] LABS: CONDITION 1; HEMOGLOBIN 5.5 g/dl (14.0-18.0); LH ANALYZER COMMENTS 1
[2016-11-03 04:09] LABS: POTASSIUM 3.5 mmol/L (3.5-5.1)
[2016-11-03 04:12] LABS: CALCIUM 6.7 mg/dl (8.4-10.2); CREATININE 0.75 mg/dl (0.61-1.24)
[2016-11-03 04:13] LABS: PHOSPHORUS 1.8 mg/dl (2.5-4.9)
[2016-11-03] MEDS: OSELTAMIVIR 75 MG CAP PO SCH ×2 (08:35→22:00)
[2016-11-03] MEDS: MULTIVITAMINS 10 ML, THIAMINE 100 MG, FOLIC ACID 1 MG in SOD CHLORIDE 0.9% 1,000 ML IVPB SCH (09:00)
--- NOTE | 2016-11-03 10:12 | PN ---
DATE: 11/03/2016 TIME OF EVALUATION: 9:30 SUBJECTIVE DATA: He had a large bowel movement that was black, tarry; status post transfusion of 5 units of PRBCs. OBJECTIVE DATA VITAL SIGNS: Temperature 98.3, pulse rate 76, respiratory rate 20, blood pressure 112/60, oxygen saturation 97% on room air. GENERAL: This is thin male lying in bed in no apparent distress. HEENT: Head normocephalic and atraumatic. Eyes: Anicteric sclerae. Conjunctivae clear. ENT: Nasal septum is midline. Oral mucosa is moist. NECK: Supple. No JVD noticed. RESPIRATORY: Bilaterally clear to auscultation. No adventitious breath sounds. No use of accessory muscles of respiration. CARDIAC: Regular rate and rhythm. No murmurs heard. ABDOMEN: Soft, nontender and nondistended. Bowel sounds positive in all 4 quadrants. GENITOURINARY: Deferred. EXTREMITIES: No cyanosis, no clubbing, no edema. Peripheral pulses palpable. NEUROLOGIC: The patient is awake, alert and oriented. Cranial nerves are grossly intact. SKIN: Pale. No skin rashes. LABORATORY AND DIAGNOSTIC DATA: WBC 4.9, hemoglobin 5.5, hematocrit 16.0, platelet count 183. Sodium 140, potassium 3.5, chloride 109, carbon dioxide 26 , anion gap 9, BUN 23, creatinine 0.75, glucose 95, calcium 6.7, phosphorus 1.8 , magnesium 2.0. ASSESSMENT AND PLAN 1. Symptomatic anemia secondary to gastrointestinal bleeding. Continue proton pump inhibitors. Transfuse as needed. Gastroenterology on the case. The patient will be evaluated for any evidence of underlying hemolysis. However, the patient has no underlying jaundice. 2. Non-ST elevation myocardial infarction. Probably a type II event secondary to underlying severe anemia. 2D echocardiogram showing preserved left ventricular ejection fraction. Unable to use any aspirin or other antiplatelet drugs because of underlying anemia. Cardiology following. 3. Influenza A. Continue on droplet precautions. Continue neuraminidase inhibitors. 4. Alcohol abuse. Continue daily multivitamins. Continue p.r.n. benzodiazepines for any alcohol withdrawal delirium. 5. Hypocalcemia. Most probably secondary to underlying hypoalbuminemia. Will monitor. 6. Laceration of the occipital area. CT scan of the brain negative for any intracranial hemorrhage. It shows minimal soft tissue swelling in the left parietal vertex without evidence for any underlying calvarial fracture. 7. Hypophosphatemia. Replete. 8. Fluid, electrolytes and nutrition. Continue clear liquid diet. 9. Deep venous thrombosis prophylaxis with bilateral sequential compression devices. 10. Gastrointestinal prophylaxis. The patient is currently on Protonix drip. 11. Continue transfusion of blood products as needed. Continue to monitor H& H. Continue Protonix drip. Await further recommendations from gastroenterology. The case was discussed with Dr. Astudillo. MATTHEW ASTUDILLO AM/JOHANA Conf#: [id number] DID#: [id number] MTDD
[2016-11-03] MEDS: SOD CHLORIDE 0.45% 1,000 ML IV SCH ×2 (10:39→15:47)
[2016-11-03 10:52] LABS: HEMATOCRIT 18.1 % (42.0-52.0)
[2016-11-03 10:56] LABS: HEMOGLOBIN 6.3 g/dl (14.0-18.0)
--- NOTE | 2016-11-03 17:05 | CONS ---
Date/Time of Note Date/Time of Note DATE: 11/03/16 TIME: 17:01 Assessment/Plan Assessment/Plan Additional Assessment/Plan Anemia, evaluate for UGIB * Monitor H&H every 6 hours, transfuse 2 units for hemoglobin less than 7.5 * Stool OB 1 * Start PPI drip * EGD tomorrow Dr. Mejias Syncope * Likely secondary to anemia EtOH abuse * Encourage abstinence Lacerations in the posterior occiput and left occiput status post repair Fever with malaise Further recommendations depend on clinical course Patient is in collaboration with Dr. Mejias Consultation Date/Type/Reason Admit Date/Time Nov 01, 2016 at 22:44 Initial Consult Date 11/02/16 Type of Consultation: Gastroenterology Referring Provider: YANETH AGUIAR 24 HR Interval Summary Free Text/Dictation Melena stools Patient consents to EGD, advised of risks/benefits/alternatives of procedure and he is agreeable to proceed Hemoglobin is 6.3, 1 unit in process EGD planned tomorrow, will transfuse as necessary to keep patient at hemoglobin above 7.5 Exam/Review of Systems Vital Signs Vitals Vital Signs Date Time Temp Pulse Resp B/P Pulse Ox O2 Delivery O2 Flow Rate FiO2 11/03/16 16:27 84 11/03/16 15:48 100.0 20 120/73 98 11/02/16 13:41 Room Air 11/02/16 01:11 2.0 Intake and Output 11/02/16 11/02/16 11/03/16 15:00 23:00 07:00 Intake Total 1465 ml 400 ml Output Total 1000 ml 1200 ml Balance 465 ml -800 ml Exam Constitutional: alert, oriented, well developed Head: normocephalic Eyes: EOMI ENMT: nl external ears & nose, nl lips & teeth, nl nasal mucosa & septum Respiratory: normal air movement Cardiovascular: regular rate and rhythm Gastrointestinal: non-tender, soft Neurological: MANAGEMENT TECH II-XII intact Results Result Diagram: 11/03/16 1035 11/03/16 0335 Results 24 hrs Laboratory Tests Test 11/02/16 18:30 11/02/16 20:05 11/03/16 03:35 11/03/16 10:35 Troponin I 0.016 Hematocrit 21.2 L 16.0 #L 18.1 L Hemoglobin 7.2 L 5.5 #*L 6.3 *L Anion Gap 9 Basophils # 0.0 Basophils % 0.3 Blood Morphology Comment Blood Urea Nitrogen 23 H Calcium Level 6.7 L Carbon Dioxide Level 26 Chloride Level 109 Creatinine 0.75 Eosinophils # 0.0 Eosinophils % 0.2 Glucose Level 95 Lymphocytes # 1.0 Lymphocytes % 20.5 Magnesium Level 2.0 Mean Corpuscular Hemoglobin 32.1 Mean Corpuscular Hemoglobin Concent 34.1 Mean Corpuscular Volume 94.2 Mean Platelet Volume 7.6 Monocytes # 0.5 Monocytes % 10.7 Neutrophils # 3.3 Neutrophils % 68.3 Nucleated Red Blood Cells # 0.0 Nucleated Red Blood Cells % 0.0 Phosphorus Level 1.8 #L Platelet Count 183 Potassium Level 3.5 Red Blood Count 1.70 L Red Cell Distribution Width 17.6 H Sodium Level 140 White Blood Count 4.9 Lactate Dehydrogenase 399 Medications Medications Current Medications Sodium Chloride (1/2 NS) 1,000 ml @ 100 mls/hr Q10H IV Last administered on 10:39; Admin Dose 100 MLS/HR; Start 11/01/16 at 23:47 Ondansetron HCl (Zofran Inj) 4 mg Q6H PRN IV NAUSEA AND/OR VOMITING; Start 11/02 at 00:00 Morphine Sulfate (morphine) 2 mg Q4H PRN IV SEVERE PAIN LEVEL 7-10; Start at 00:00 Docusate Sodium (Colace) 100 mg Q12H PRN PO CONSTIPATION; Start 11/02/16 at 00: 00 Zolpidem Tartrate (Ambien) 5 mg QHS PRN PO SLEEP; Start 11/02/16 at 00:00 Oseltamivir Phosphate 75 mg 75 mg BID PO Last administered on 11/03/16 08:35; Admin Dose 75 MG; Start 11/02/16 at 09:00 Multivitamins/ Thiamine HCl/ Folic Acid/Sodium Chloride (Mvi-12 Adult/ Vitamin B1/Folic Acid/NS) 1,011.2 ml @ 125 mls/ hr DAILY@09 IVPB Last administered on 11/02/16 12:01; Admin Dose 125 MLS/HR; Start 11/02/16 at 10:00 Lorazepam 1 mg 1 mg Q4 PRN IV CONTROL WITHDRAWAL SYMPTOMS; Start 11/02/16 at 08: 00 Pantoprazole 80 mg/Sodium Chloride 100 ml @ 10 mls/hr Q10H IV Last administered on 11/03/16t 12:35; Admin Dose 10 MLS/HR; Start 11/02/16 at 12:00 Potassium Phosphate/Sodium Chloride (K Phos (Mm)/NS) 255 ml @ 65 mls/hr Q4H IVPB ; Start 11/03/16 at 10:30; Stop 11/03/16 at 18:26 LEAH MOREIRA Nov 03, 2016 17:05
[2016-11-03] MEDS ORDERED: PANTOPRAZOLE IV 80 MG in SOD CHLORIDE 0.9% 100 ML IV SCH (17:30)
[2016-11-03] MEDS: POTASSIUM PHOSPHATE 15 MM in SOD CHLORIDE 0.9% 250 ML IVPB SCH ×2 (18:11→22:01)
[2016-11-03 20:20] LABS: HEMATOCRIT 27.1 % (42.0-52.0); HEMOGLOBIN 9.3 g/dl (14.0-18.0)
[2016-11-03] MEDS: OCTREOTIDE 1 MG in SOD CHLORIDE 0.9% 95 ML IV SCH (22:00)
[2016-11-04] VITALS (14 sets, daily range): BP systolic 96–121; BP diastolic 60–72; PULSE 53–75; RESP 16–18
[2016-11-04 00:42] LABS: HEMATOCRIT 22.4 % (42.0-52.0); HEMOGLOBIN 7.6 g/dl (14.0-18.0)
[2016-11-04] MEDS: SOD CHLORIDE 0.45% 1,000 ML IV SCH ×3 (01:47→18:59)
[2016-11-04 05:36] LABS: ALBUMIN 2.3 g/dl (3.3-4.9)
[2016-11-04 05:37] LABS: POTASSIUM 3.7 mmol/L (3.5-5.1)
[2016-11-04 05:39] LABS: ALBUMIN/GLOBULIN RATIO 1.09; BILIRUBIN,INDIRECT 0.8 mg/dl (0-1.1); BILIRUBIN,TOTAL 0.8 mg/dl (0.2-1.3); CREATININE 0.71 mg/dl (0.61-1.24); MAGNESIUM 2.2 mg/dl (1.7-2.5); PHOSPHORUS 3.5 mg/dl (2.5-4.9); TOTAL PROTEIN 4.4 g/dl (6.1-8.1)
[2016-11-04 05:40] LABS: CALCIUM 6.8 mg/dl (8.4-10.2)
[2016-11-04 05:46] LABS: INR 1.09; PARTIAL THROMBOPLASTIN TIME 24.1 Sec (25.0-35.0); PROTIME 14.1 Sec (12.2-14.2); PT RATIO 1.1
[2016-11-04 05:49] LABS: BASOPHILS % 0.4 % (0.0-2.0); EOSINOPHILS # 0.1 10^3/ul (0.0-0.5); EOSINOPHILS % 0.8 % (0.0-7.0); HEMATOCRIT 24.2 % (42.0-52.0); HEMOGLOBIN 8.3 g/dl (14.0-18.0); LYMPHOCYTES # 1.5 10^3/ul (0.8-2.9); LYMPHOCYTES % 22.8 % (15.0-51.0); MEAN CORPUSCULAR HEMOGLOBIN 31.3 pg (29.0-33.0); MEAN CORPUSCULAR HGB CONC 34.1 g/dl (32.0-37.0); MEAN CORPUSCULAR VOLUME 91.7 fl (82.0-101.0); MEAN PLATELET VOLUME 8.1 fl (7.4-10.4); MONOCYTE # 0.5 10^3/ul (0.3-0.9); MONOCYTES % 7.7 % (0.0-11.0); NEUTROPHIL # 4.5 10^3/ul (1.6-7.5); NEUTROPHILS % 68.3 % (39.0-77.0); PLATELET COUNT 182 10^3/UL (140-440); RED BLOOD COUNT 2.64 10^6/ul (4.70-6.10); RED CELL DISTRIBUTION WIDTH 15.5 % (11.5-14.5); UNCORRECTED WBC 6.6 10^3/ul (4.8-10.8); WHITE BLOOD COUNT 6.6 10^3/ul (4.8-10.8)
[2016-11-04 05:51] LABS: CONDITION 1; LH ANALYZER COMMENTS 1
[2016-11-04] MEDS: OSELTAMIVIR 75 MG CAP PO SCH ×2 (08:12→20:59)
[2016-11-04] MEDS: MULTIVITAMINS 10 ML, THIAMINE 100 MG, FOLIC ACID 1 MG in SOD CHLORIDE 0.9% 1,000 ML IVPB SCH (08:13)
--- NOTE | 2016-11-04 09:56 | PN ---
Date/Time of Note Date/Time of Note DATE: 11/04/16 TIME: 09:54 Assessment/Plan VTE Prophylaxis VTE Prophylaxis Intervention: SCD's VTE Contraindication Reason: bleeding Lines/Catheters IV Catheter Type (from Nrs): Peripheral IV Urinary Cath still in place: No Assessment/Plan Assessment/Plan 1. Symptomatic anemia secondary to gastrointestinal bleeding. Continue proton pump inhibitors. Transfuse as needed. Gastroenterology on the case. The patient will be evaluated for any evidence of underlying hemolysis. However, the patient has no underlying jaundice. 2. Non-ST elevation myocardial infarction. Probably a type II event secondary to underlying severe anemia. 2D echocardiogram showing preserved left ventricular ejection fraction. Unable to use any aspirin or other antiplatelet drugs because of underlying anemia. Cardiology following. 3. Influenza A. Continue on droplet precautions. Continue neuraminidase inhibitors. 4. Alcohol abuse. Continue daily multivitamins. Continue p.r.n. benzodiazepines for any alcohol withdrawal delirium. 5. Hypocalcemia. Most probably secondary to underlying hypoalbuminemia. Will monitor. 6. Laceration of the occipital area. CT scan of the brain negative for any intracranial hemorrhage. It shows minimal soft tissue swelling in the left parietal vertex without evidence for any underlying calvarial fracture. 7. Hypophosphatemia. Replete. 8. Fluid, electrolytes and nutrition. Continue clear liquid diet. 9. Deep venous thrombosis prophylaxis with bilateral sequential compression devices. 10. Gastrointestinal prophylaxis. The patient is currently on Protonix drip. 11. Continue transfusion of blood products as needed. Continue to monitor H& H. Continue Protonix drip. Await findings from EGD. Subjective 24 Hr Interval Summary Free Text/Dictation Patient seen and examined. planned for EGD today Exam/Review of Systems Vital Signs Vitals Vital Signs Date Time Temp Pulse Resp B/P Pulse Ox O2 Delivery O2 Flow Rate FiO2 11/04/16 08:44 57 11/04/16 07:23 98.1 18 103/67 98 11/02/16 13:41 Room Air 11/02/16 01:11 2.0 Intake and Output 11/03/16 11/03/16 11/04/16 15:00 23:00 07:00 Intake Total 650 ml 200 ml Output Total 800 ml 600 ml Balance -150 ml -400 ml Exam GENERAL: This is thin male lying in bed in no apparent distress. HEENT: Head normocephalic and atraumatic. Eyes: Anicteric sclerae. Conjunctivae clear. ENT: Nasal septum is midline. Oral mucosa is moist. NECK: Supple. No JVD noticed. RESPIRATORY: Bilaterally clear to auscultation. No adventitious breath sounds. No use of accessory muscles of respiration. CARDIAC: Regular rate and rhythm. No murmurs heard. ABDOMEN: Soft, nontender and nondistended. Bowel sounds positive in all 4 quadrants. GENITOURINARY: Deferred. EXTREMITIES: No cyanosis, no clubbing, no edema. Peripheral pulses palpable. NEUROLOGIC: The patient is awake, alert and oriented. Cranial nerves are grossly intact. SKIN: Pale. No skin rashes. Results Result Diagram: 11/04/16 0455 11/04/16 0455 Results 24 hrs Laboratory Tests Test 11/03/16 10:35 11/03/16 19:25 11/04/16 00:10 11/04/16 04:55 Hematocrit 18.1 L 27.1 #L 22.4 L 24.2 L Hemoglobin 6.3 *L 9.3 #L 7.6 L 8.3 L Lactate Dehydrogenase 399 Activated Partial Thromboplast Time 24.1 L Alanine Aminotransferase (ALT/SGPT) 34 Albumin 2.3 L Albumin/Globulin Ratio 1.09 Alkaline Phosphatase 21 L Anion Gap 11 Aspartate Amino Transf (AST/SGOT) 28 Basophils # 0.0 Basophils % 0.4 Blood Morphology Comment Blood Urea Nitrogen 14 # Calcium Level 6.8 L Carbon Dioxide Level 26 Chloride Level 109 Creatinine 0.71 Direct Bilirubin 0.00 Eosinophils # 0.1 Eosinophils % 0.8 Globulin 2.10 Glucose Level 109 INR International Normalized Ratio 1.09 Indirect Bilirubin 0.8 Lymphocytes # 1.5 Lymphocytes % 22.8 Magnesium Level 2.2 Mean Corpuscular Hemoglobin 31.3 Mean Corpuscular Hemoglobin Concent 34.1 Mean Corpuscular Volume 91.7 Mean Platelet Volume 8.1 Monocytes # 0.5 Monocytes % 7.7 Neutrophils # 4.5 Neutrophils % 68.3 Nucleated Red Blood Cells # 0.0 Nucleated Red Blood Cells % 0.0 Phosphorus Level 3.5 Platelet Count 182 Potassium Level 3.7 Prothrombin Time 14.1 Prothrombin Time Ratio 1.1 Red Blood Count 2.64 #L Red Cell Distribution Width 15.5 H Sodium Level 142 Total Bilirubin 0.8 Total Protein 4.4 L White Blood Count 6.6 # Medications Medications Current Medications Sodium Chloride (1/2 NS) 1,000 ml @ 100 mls/hr Q10H IV Last administered on 01:47; Admin Dose 100 MLS/HR; Start 11/01/16 at 23:47 Ondansetron HCl (Zofran Inj) 4 mg Q6H PRN IV NAUSEA AND/OR VOMITING; Start 11/02 at 00:00 Morphine Sulfate (morphine) 2 mg Q4H PRN IV SEVERE PAIN LEVEL 7-10; Start at 00:00 Docusate Sodium (Colace) 100 mg Q12H PRN PO CONSTIPATION; Start 11/02/16 at 00: 00 Zolpidem Tartrate (Ambien) 5 mg QHS PRN PO SLEEP; Start 11/02/16 at 00:00 Oseltamivir Phosphate 75 mg 75 mg BID PO Last administered on 11/04/16 08:12; Admin Dose 75 MG; Start 11/02/16 at 09:00 Multivitamins/ Thiamine HCl/ Folic Acid/Sodium Chloride (Mvi-12 Adult/ Vitamin B1/Folic Acid/NS) 1,011.2 ml @ 125 mls/ hr DAILY@09 IVPB Last administered on 11/04/16 08:13; Admin Dose 125 MLS/HR; Start 11/02/16 at 10:00 Lorazepam 1 mg 1 mg Q4 PRN IV CONTROL WITHDRAWAL SYMPTOMS; Start 11/02/16 at 08: 00 Pantoprazole 80 mg/Sodium Chloride 100 ml @ 10 mls/hr Q10H IV Last administered on 11/03/16 22:16; Admin Dose 10 MLS/HR; Start 11/02/16 at 12:00 Octreotide Acetate/Sodium Chloride (Sandostatin/NS) 100 ml @ 5 mls/hr Q20H IV Last administered on 11/03/16 22:00; Admin Dose 5 MLS/HR; Start 11/03/16 at 17:30 MARGIE MENDOZA Nov 04, 2016 09:56
[2016-11-04] MEDS: PANTOPRAZOLE IV 80 MG in SOD CHLORIDE 0.9% 100 ML IV SCH ×2 (10:08→21:07)
--- NOTE | 2016-11-04 10:39 | RADRPT ---
PROCEDURE: US Abdomen. CLINICAL INDICATION: abdominal pain TECHNIQUE: Multiple real-time images were acquired of the patient's right upper quadrant abdomen a nd retroperitoneum utilizing a high resolution transducer. COMPARISON: 11/02/16 FINDINGS: The liver demonstrates normal echogenicity. The liver is normal in size and no focal solid lesions are seen. The liver measures 17.6 cm in length. The portal vein is patent with normal direction of f low. No intrahepatic biliary dilatation is seen. No gallstones are identified within the gallbladder. There is no pericholecystic fluid or gallbladd er wall thickening. The common bile duct measures 4 mm in maximal dimension. The visualized portions of the pancreas are unremarkable. The tail of the pancreas is not seen. No free fluid is identified. The right kidney is normal in size, and demonstrate normal echogenicity and cortical thickness. The right kidney measures 10.6 cm in long dimension. There is no evidence of hydronephrosis. There are no kidney stones. RPTAT: AA IMPRESSION: Unremarkable right upper quadrant abdominal ultrasound. .Grzegorz Beckham MD, Date Time Electronically viewed and signed by .Grzegorz Beckham MD, on 11/04/2016 10:39 .S/
[2016-11-04 12:55] LABS: HEMATOCRIT 22.1 % (42.0-52.0); HEMOGLOBIN 7.8 g/dl (14.0-18.0)
[2016-11-04] MEDS: OCTREOTIDE 1 MG in SOD CHLORIDE 0.9% 95 ML IV SCH (14:52)
[2016-11-04] MEDS ORDERED: PROPOFOL 20 ML ONE ×2 (17:53→18:08)
[2016-11-04] MEDS: SUCRALFATE (100 MG/ML) 10ML CUP PO SCH ×3 (19:10→21:00)
[2016-11-04 20:50] LABS: HEMATOCRIT 21.6 % (42.0-52.0); HEMOGLOBIN 7.4 g/dl (14.0-18.0)
[2016-11-05] VITALS (11 sets, daily range): BP systolic 106–120; BP diastolic 55–66; PULSE 51–71; RESP 17–20
[2016-11-05] MEDS: SUCRALFATE (100 MG/ML) 10ML CUP PO SCH ×5 (01:41→20:46)
[2016-11-05] MEDS: SOD CHLORIDE 0.45% 1,000 ML IV SCH ×2 (07:47→11:42)
[2016-11-05] MEDS: OSELTAMIVIR 75 MG CAP PO SCH ×2 (09:41→20:46)
[2016-11-05] MEDS: MULTIVITAMINS 10 ML, THIAMINE 100 MG, FOLIC ACID 1 MG in SOD CHLORIDE 0.9% 1,000 ML IVPB SCH (09:41)
[2016-11-05] MEDS: PANTOPRAZOLE IV 80 MG in SOD CHLORIDE 0.9% 100 ML IV SCH ×4 (10:48→21:38)
--- NOTE | 2016-11-05 11:01 | CONS ---
Date/Time of Note Date/Time of Note DATE: 11/05/16 TIME: 10:52 Assessment/Plan Assessment/Plan Additional Assessment/Plan Anemia, evaluate for UGIB * Monitor H&H every 6 hours, transfuse 2 units for hemoglobin less than 7.5 * Continue PPI drip and Carafate 4 times daily * s/p EGD: 1. Clean base 1.5 antral gastric ulcer tomorrow Dr. Mejias 2. Biopsies from Syncope * Likely secondary to anemia EtOH abuse * Encourage abstinence Lacerations in the posterior occiput and left occiput status post repair Fever with malaise Further recommendations depend on clinical course Patient is in collaboration with Dr. Mejias Consultation Date/Type/Reason Admit Date/Time Nov 01, 2016 at 22:44 Initial Consult Date 11/02/16 Type of Consultation: Gastroenterology Referring Provider: YANETH AGUIAR 24 HR Interval Summary Free Text/Dictation Hemoglobin at 7.4, status post 2 units by 0430 No reports of abdominal pain, nausea, vomiting Tolerating diet Check H&H every 6 and follow up on pathology Exam/Review of Systems Vital Signs Vitals Vital Signs Date Time Temp Pulse Resp B/P Pulse Ox O2 Delivery O2 Flow Rate FiO2 11/05/16 08:18 51 11/05/16 07:59 98.1 17 120/63 97 11/04/16 18:46 Room Air 11/02/16 01:11 2.0 Intake and Output 11/04/16 11/04/16 11/05/16 15:00 23:00 07:00 Intake Total 0 ml 1270 ml Output Total 850 ml Balance 0 ml 420 ml Exam Constitutional: alert, oriented, well developed Head: normocephalic Eyes: EOMI ENMT: nl external ears & nose, nl lips & teeth, nl nasal mucosa & septum Respiratory: normal air movement Cardiovascular: regular rate and rhythm Gastrointestinal: non-tender, soft Neurological: 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 II-XII intact Results Result Diagram: 11/04/16202411/04/16 0455 Results 24 hrs Laboratory Tests Test 11/04/16 11:35 11/04/16 12:09 11/04/16 20:25 Stool Occult Blood POSITIVE Hematocrit 22.1 L 21.6 L Hemoglobin 7.8 L 7.4 L Medications Medications Current Medications Sodium Chloride (1/2 NS) 1,000 ml @ 100 mls/hr Q10H IV Last administered on 18:59; Admin Dose 100 MLS/HR; Start 11/01/16 at 23:47 Ondansetron HCl (Zofran Inj) 4 mg Q6H PRN IV NAUSEA AND/OR VOMITING Last administered on 11/05/16 01:20; Admin Dose 4 MG; Start 11/02/16 at 00:00 Morphine Sulfate (morphine) 2 mg Q4H PRN IV SEVERE PAIN LEVEL 7-10 Last administered on 11/05/16 01:20; Admin Dose 2 MG; Start 11/02/16 at 00:00 Docusate Sodium (Colace) 100 mg Q12H PRN PO CONSTIPATION; Start 11/02/16 at 00: 00 Zolpidem Tartrate (Ambien) 5 mg QHS PRN PO SLEEP; Start 11/02/16 at 00:00 Oseltamivir Phosphate 75 mg 75 mg BID PO Last administered on 11/05/16 09:41; Admin Dose 75 MG; Start 11/02/16 at 09:00 Multivitamins/ Thiamine HCl/ Folic Acid/Sodium Chloride (Mvi-12 Adult/ Vitamin B1/Folic Acid/NS) 1,011.2 ml @ 125 mls/ hr DAILY@09 IVPB Last administered on 11/05/16 09:41; Admin Dose 125 MLS/HR; Start 11/02/16 at 10:00 Lorazepam 1 mg 1 mg Q4 PRN IV CONTROL WITHDRAWAL SYMPTOMS; Start 11/02/16 at 08: 00 Pantoprazole/ Sodium Chloride (Protonix Iv/NS) 100 ml @ 10 mls/hr Q10H IV Last administered on 11/05/16 10:48; Admin Dose 10 MLS/HR; Start 11/02/16 at 12: 00 Sucralfate (Carafate Susp) 1 gm QID PO Last administered on 11/05/16 09:41; Admin Dose 1 GM; Start 11/04/16 at 18:30 LEAH MOREIRA Nov 05, 2016 11:01
[2016-11-05 11:49] LABS: HEMATOCRIT 30.9 % (42.0-52.0); HEMOGLOBIN 10.5 g/dl (14.0-18.0)
--- NOTE | 2016-11-05 12:33 | GILP ---
DATE OF PROCEDURE: 11/04/2016 PROCEDURE: Esophagogastroduodenoscopy with biopsies. BRIEF HISTORY AND INDICATIONS: The patient is being evaluated for significant gastrointestinal blee ding with melena. PREMEDICATION: Monitored anesthesia care by anesthesiologist. SURGEON: Lester Mejias MD. INSTRUMENT USED: Olympus panendoscope. TECHNIQUE: After informed consent, with the patient/relatives understanding the procedure, its indic ations, potential risks and complications, including but not limited to: allergic reaction, bleeding , perforation or infection, and after all pertinent questions were answered to the patients satisfac tion, the patient/relatives signed witnessed informed consent. Following this, premedication was administered slowly IV push under careful cardiovascular and respi ratory monitoring with pulse oximetry, automatic blood pressure and threat monitoring analyst. Once the sedative effect was achieved the patient was place in the left lateral decubitus, the panen doscope was introduced and advanced under visual control. Careful examination of the upper gastrointestinal tract, both on insertion as well as withdrawal of the instrument disclosed the following findings: ESOPHAGUS: The mucosa of the entire esophagus appears within normal limits. There is no evidence of esophagitis, varices, neoplasm or stricture. No hiatal hernia identified. STOMACH: Upon entrance to the stomach, air was insufflated and the gastric gutierrez distended normally . The mucosa of the fundus, body and antrum of the stomach was carefully examined. The antrum is r emarkable for the presence of a clean base 1.5 cm benign appearing gastric ulceration. The base is clean with no stigmata of recent bleeding or visible vessel. Biopsies were obtained in a limited fa shion. PYLORUS: The pylorus appears patent and within normal limits, with no evidence of gastric outlet obs truction. DUODENUM: The duodenal mucosa was carefully examined in the duodenal bulb as well as the second port ion of the duodenum and appears unremarkable with no evidence of duodenitis, ulcer or neoplasm. The instrument was then withdrawn, the patient tolerated the procedure well and was transfer out of the endoscopy suite awake, and in good condition to continue recovery under observation IMPRESSION: Clean-based 1.5 cm antral gastric ulceration with no stigmata of recent bleeding or like lihood of rebleeding. PLAN: 1. The patient will be treated with PPI double dose and Carafate q.i.d. 2. Pathology will be reviewed as soon as available. 3. Close monitoring of hemoglobin and hematocrit. 4. Transfuse as necessary. 5. The patient will require followup endoscopy in 8 weeks. Dictated By: LESTER MEJIAS MS/JOHANA Conf#: [id number] DID#: [id number]
[2016-11-05 13:26] LABS: BARBITURATES Negative (NEGATIVE); BENZODIAZEPINES Negative (NEGATIVE); CANNABINOIDS Negative (NEGATIVE); COCAINE Negative (NEGATIVE); OPIATES Positive (NEGATIVE)
[2016-11-05 18:29] LABS: HEMATOCRIT 27.6 % (42.0-52.0); HEMOGLOBIN 9.4 g/dl (14.0-18.0)
[2016-11-06] VITALS (12 sets, daily range): BP systolic 101–113; BP diastolic 55–67; PULSE 54–73; RESP 18–20
--- NOTE | 2016-11-06 00:02 | PN ---
Date/Time of Note Date/Time of Note DATE: 11/05/16 TIME: 13:01 Assessment/Plan VTE Prophylaxis VTE Prophylaxis Intervention: other Lines/Catheters IV Catheter Type (from [facility]): Peripheral IV Urinary Cath still in place: No Assessment/Plan Assessment/Plan 1. Symptomatic anemia secondary to gastrointestinal bleeding. Continue proton pump inhibitors. Transfuse as needed. Gastroenterology on the case. The patient will be evaluated for any evidence of underlying hemolysis. However, the patient has no underlying jaundice. 2. Non-ST elevation myocardial infarction. Probably a type II event secondary to underlying severe anemia. 2D echocardiogram showing preserved left ventricular ejection fraction. Unable to use any aspirin or other antiplatelet drugs because of underlying anemia. Cardiology following. 3. Influenza A. Continue on droplet precautions. Continue neuraminidase inhibitors. 4. Alcohol abuse. Continue daily multivitamins. Continue p.r.n. benzodiazepines for any alcohol withdrawal delirium. 5. Hypocalcemia. Most probably secondary to underlying hypoalbuminemia. Will monitor. 6. Laceration of the occipital area. CT scan of the brain negative for any intracranial hemorrhage. It shows minimal soft tissue swelling in the left parietal vertex without evidence for any underlying calvarial fracture. 7. Hypophosphatemia. Replete. 8. Fluid, electrolytes and nutrition. Continue clear liquid diet. 9. Deep venous thrombosis prophylaxis with bilateral sequential compression devices. 10. Gastrointestinal prophylaxis. The patient is currently on Protonix drip. 11. Continue transfusion of blood products as needed. Continue to monitor H& H. Continue Protonix drip. Await findings from EGD. Subjective 24 Hr Interval Summary Free Text/Dictation c/o headache and abd pain Exam/Review of Systems Vital Signs Vitals Vital Signs Date Time Temp Pulse Resp B/P Pulse Ox O2 Delivery O2 Flow Rate FiO2 11/05/16 20:29 61 11/05/16 20:25 98.1 18 106/55 99 11/04/16 18:46 Room Air Intake and Output 11/05/16 11/05/16 11/06/16 15:00 23:00 07:00 Intake Total 3570 ml Output Total 500 ml Balance 3070 ml Exam GENERAL: This is thin male lying in bed in no apparent distress. HEENT: Head normocephalic and atraumatic. Eyes: Anicteric sclerae. Conjunctivae clear. ENT: Nasal septum is midline. Oral mucosa is moist. NECK: Supple. No JVD noticed. RESPIRATORY: Bilaterally clear to auscultation. No adventitious breath sounds. No use of accessory muscles of respiration. CARDIAC: Regular rate and rhythm. No murmurs heard. ABDOMEN: Soft, nontender and nondistended. Bowel sounds positive in all 4 quadrants. GENITOURINARY: Deferred. EXTREMITIES: No cyanosis, no clubbing, no edema. Peripheral pulses palpable. NEUROLOGIC: The patient is awake, alert and oriented. Cranial nerves are grossly intact. SKIN: Pale. No skin rashes. Results Result Diagram: 11/05/16 1745 11/04/16 0455 Results 24 hrs Laboratory Tests Test 11/05/16 08:30 11/05/16 11:31 11/05/16 17:45 Urine Amphetamines Screen Negative Urine Barbiturates Negative Urine Benzodiazepines Screen Negative Urine Cannabinoids Negative Urine Cocaine Screen Negative Urine Opiates Screen Positive Hematocrit 30.9 #L 27.6 L Hemoglobin 10.5 #L 9.4 L Medications Medications Current Medications Sodium Chloride (1/2 NS) 1,000 ml @ 100 mls/hr Q10H IV Last administered on 11:42; Admin Dose 100 MLS/HR; Start 11/01/16 at 23:47 Ondansetron HCl (Zofran Inj) 4 mg Q6H PRN IV NAUSEA AND/OR VOMITING Last administered on 11/05/16 01:20; Admin Dose 4 MG; Start 11/02/16 at 00:00 Morphine Sulfate (morphine) 2 mg Q4H PRN IV SEVERE PAIN LEVEL 7-10 Last administered on 11/05/16 01:20; Admin Dose 2 MG; Start 11/02/16 at 00:00 Docusate Sodium (Colace) 100 mg Q12H PRN PO CONSTIPATION; Start 11/02/16 at 00: 00 Zolpidem Tartrate (Ambien) 5 mg QHS PRN PO SLEEP; Start 11/02/16 at 00:00 Oseltamivir Phosphate 75 mg 75 mg BID PO Last administered on 11/05/16 20:46; Admin Dose 75 MG; Start 11/02/16 at 09:00 Multivitamins/ Thiamine HCl/ Folic Acid/Sodium Chloride (Mvi-12 Adult/ Vitamin B1/Folic Acid/NS) 1,011.2 ml @ 125 mls/ hr DAILY@09 IVPB Last administered on 11/05/16 09:41; Admin Dose 125 MLS/HR; Start 11/02/16 at 10:00 Lorazepam 1 mg 1 mg Q4 PRN IV CONTROL WITHDRAWAL SYMPTOMS; Start 11/02/16 at 08: 00 Pantoprazole/ Sodium Chloride (Protonix Iv/NS) 100 ml @ 10 mls/hr Q10H IV Last administered on 11/05/16 21:38; Admin Dose 10 MLS/HR; Start 11/02/16 at 12: 00 Sucralfate (Carafate Susp) 1 gm QID PO Last administered on 11/05/16 20:46; Admin Dose 1 GM; Start 11/04/16 at 18:30 DARA LOYA MD Nov 06, 2016 00:01
[2016-11-06 01:30] LABS: HEMATOCRIT 26.6 % (42.0-52.0)
[2016-11-06] MEDS: SOD CHLORIDE 0.45% 1,000 ML IV SCH ×3 (04:58→23:03)
[2016-11-06] MEDS: PANTOPRAZOLE IV 80 MG in SOD CHLORIDE 0.9% 100 ML IV SCH ×2 (05:28→15:02)
[2016-11-06 06:22] LABS: HEMATOCRIT 27.1 % (42.0-52.0); HEMOGLOBIN 9.4 g/dl (14.0-18.0)
--- NOTE | 2016-11-06 08:59 | CONS ---
Date/Time of Note Date/Time of Note DATE: 11/06/16 TIME: 08:57 Assessment/Plan Assessment/Plan Additional Assessment/Plan Anemia, evaluate for UGIB * Monitor H&H every 6 hours, transfuse 2 units for hemoglobin less than 7.5 * Continue PPI drip and Carafate 4 times daily * s/p EGD: 1. Clean base 1.5 antral gastric ulcer tomorrow Dr. Mejias 2. Biopsies from Syncope * Likely secondary to anemia EtOH abuse * Encourage abstinence Lacerations in the posterior occiput and left occiput status post repair Fever with malaise, improving Patient stable from a GI standpoint Further recommendations depend on clinical course Patient is in collaboration with Dr. Mejias Consultation Date/Type/Reason Admit Date/Time Nov 01, 2016 at 22:44 Initial Consult Date 11/02/16 Type of Consultation: Gastroenterology Referring Provider: YANETH AGUIAR 24 HR Interval Summary Free Text/Dictation Patient tolerating diet Denies nausea, vomiting, rectal bleeding Hemoglobin stable Patient stable from GI standpoint Pathology in process Exam/Review of Systems Vital Signs Vitals Vital Signs Date Time Temp Pulse Resp B/P Pulse Ox O2 Delivery O2 Flow Rate FiO2 11/06/16 08:18 54 11/06/16 03:40 98.4 20 109/55 99 11/04/16 18:46 Room Air Intake and Output 11/05/16 11/05/16 11/06/16 15:00 23:00 07:00 Intake Total 3570 ml 400 ml Output Total 500 ml Balance 3070 ml 400 ml Exam Constitutional: alert, oriented, well developed Head: normocephalic Eyes: EOMI ENMT: nl external ears & nose, nl lips & teeth, nl nasal mucosa & septum Respiratory: normal air movement Cardiovascular: regular rate and rhythm Gastrointestinal: non-tender, soft Neurological: ROOF TECHNICIAN II-XII intact Results Result Diagram: 11/06/16 0517 11/04/16 0455 Results 24 hrs Laboratory Tests Test 11/05/16 11:31 11/05/16 17:45 11/06/16 00:40 11/06/16 05:17 Hematocrit 30.9 #L 27.6 L 26.6 L 27.1 L Hemoglobin 10.5 #L 9.4 L 9.0 L 9.4 L Medications Medications Current Medications Sodium Chloride (1/2 NS) 1,000 ml @ 100 mls/hr Q10H IV Last administered on 04:58; Admin Dose 100 MLS/HR; Start 11/01/16 at 23:47 Ondansetron HCl (Zofran Inj) 4 mg Q6H PRN IV NAUSEA AND/OR VOMITING Last administered on 11/05/16 01:20; Admin Dose 4 MG; Start 11/02/16 at 00:00 Morphine Sulfate (morphine) 2 mg Q4H PRN IV SEVERE PAIN LEVEL 7-10 Last administered on 11/05/16 01:20; Admin Dose 2 MG; Start 11/02/16 at 00:00 Docusate Sodium (Colace) 100 mg Q12H PRN PO CONSTIPATION; Start 11/02/16 at 00: 00 Zolpidem Tartrate (Ambien) 5 mg QHS PRN PO SLEEP; Start 11/02/16 at 00:00 Oseltamivir Phosphate 75 mg 75 mg BID PO Last administered on 11/05/16 20:46; Admin Dose 75 MG; Start 11/02/16 at 09:00 Multivitamins/ Thiamine HCl/ Folic Acid/Sodium Chloride (Mvi-12 Adult/ Vitamin B1/Folic Acid/NS) 1,011.2 ml @ 125 mls/ hr DAILY@09 IVPB Last administered on 11/05/16 09:41; Admin Dose 125 MLS/HR; Start 11/02/16 at 10:00 Lorazepam 1 mg 1 mg Q4 PRN IV CONTROL WITHDRAWAL SYMPTOMS; Start 11/02/16 at 08: 00 Pantoprazole/ Sodium Chloride (Protonix Iv/NS) 100 ml @ 10 mls/hr Q10H IV Last administered on 11/06/16 05:28; Admin Dose 10 MLS/HR; Start 11/02/16 at 12: 00 Sucralfate (Carafate Susp) 1 gm QID PO Last administered on 11/05/16 20:46; Admin Dose 1 GM; Start 11/04/16 at 18:30 LEAH MOREIRA Nov 06, 2016 08:59
[2016-11-06] MEDS: SUCRALFATE (100 MG/ML) 10ML CUP PO SCH ×4 (09:00→20:57)
[2016-11-06] MEDS: OSELTAMIVIR 75 MG CAP PO SCH ×2 (09:00→20:57)
[2016-11-06] MEDS: MULTIVITAMINS 10 ML, THIAMINE 100 MG, FOLIC ACID 1 MG in SOD CHLORIDE 0.9% 1,000 ML IVPB SCH (09:00)
--- NOTE | 2016-11-06 11:23 | PN ---
Date/Time of Note Date/Time of Note DATE: 11/06/16 TIME: 11:18 Assessment/Plan VTE Prophylaxis VTE Prophylaxis Intervention: contraindicated VTE Contraindication Reason: bleeding Lines/Catheters IV [facility]ter Type (from [facility] Peripheral IV Urinary Cath still in place: No Assessment/Plan Assessment/Plan 1. Symptomatic anemia secondary to gastrointestinal bleeding. c/w PPI/carafate , s/p EGD - 1.5 cm gastric ulceration - appreciate GI c/s - transfuse as needed 2. Non-ST elevation myocardial infarction. Probably a type II event secondary to underlying severe anemia. 2D echocardiogram showing preserved left ventricular ejection fraction. Unable to use any aspirin or other antiplatelet drugs because of underlying anemia. Cardiology following. 3. Influenza A. Continue on droplet precautions. Continue neuraminidase inhibitors. x 5 days total 4. Alcohol abuse. Continue daily multivitamins. Continue p.r.n. benzodiazepines for any alcohol withdrawal delirium. 5. Hypocalcemia. Most probably secondary to underlying hypoalbuminemia. Will monitor. 6. Laceration of the occipital area. CT scan of the brain negative for any intracranial hemorrhage. It shows minimal soft tissue swelling in the left parietal vertex without evidence for any underlying calvarial fracture. 7. Hypophosphatemia. Replete. 8. Fluid, electrolytes and nutrition. Continue clear liquid diet - advance as tolerated 9. Deep venous thrombosis prophylaxis with bilateral sequential compression devices. 10. Gastrointestinal prophylaxis. The patient is currently on Protonix drip. dispo - f/u recs - as per clinical course - once cleared by consultants and tolerates diet, dc planning this progress note took greater than 30 minutes to complete Subjective 24 Hr Interval Summary Free Text/Dictation The patient is doing better today. States that his bowel movements are more formed today. Otherwise no events overnight. Tolerating diet. Spoke to the patient and nurse about the care plan. 15 minutes spent. Exam/Review of Systems Vital Signs Vitals Vital Signs Date Time Temp Pulse Resp B/P Pulse Ox O2 Delivery O2 Flow Rate FiO2 11/06/16 09:24 98.2 61 18 103/58 99 Room Air Intake and Output 11/05/16 11/05/16 11/06/16 15:00 23:00 07:00 Intake Total 3570 ml 400 ml Output Total 500 ml Balance 3070 ml 400 ml Exam Gen Usha: NAD, AAOx4 HEENT: NC/AT, PERRLA, EOMI, no pharyngeal erythema, no tonsillar exudates, no lymphadenopathy, no JVD, no carotid bruits NECK: supple, no thyromegaly THORAX: symmetrical, no obvious deformities CV: S1S2, RRR, no M/G/R Lungs: CTAB no W/C/R/R Abd: soft, NT/ND, +BS, no rebound, no guarding, neg HSM EXT: no edema, no ecchymosis, no clubbing, FROM Neuro: CN II-XII grossly intact, no focal deficits Psych: good mentation, alert and oriented, good mood and affect Skin: C/D/I Results Result Diagram: 11/06/16 0517 11/04/16 0455 Results 24 hrs Laboratory Tests Test 11/05/16 11:31 11/05/16 17:45 11/06/16 00:40 11/06/16 05:17 Hematocrit 30.9 #L 27.6 L 26.6 L 27.1 L Hemoglobin 10.5 #L 9.4 L 9.0 L 9.4 L Medications Medications Current Medications Sodium Chloride (1/2 NS) 1,000 ml @ 100 mls/hr Q10H IV Last administered on 04:58; Admin Dose 100 MLS/HR; Start 11/01/16 at 23:47 Ondansetron HCl (Zofran Inj) 4 mg Q6H PRN IV NAUSEA AND/OR VOMITING Last administered on 11/05/16 01:20; Admin Dose 4 MG; Start 11/02/16 at 00:00 Morphine Sulfate (morphine) 2 mg Q4H PRN IV SEVERE PAIN LEVEL 7-10 Last administered on 11/05/16 01:20; Admin Dose 2 MG; Start 11/02/16 at 00:00 Docusate Sodium (Colace) 100 mg Q12H PRN PO CONSTIPATION; Start 11/02/16 at 00: 00 Zolpidem Tartrate (Ambien) 5 mg QHS PRN PO SLEEP; Start 11/02/16 at 00:00 Oseltamivir Phosphate 75 mg 75 mg BID PO Last administered on 11/06/16 09:00; Admin Dose 75 MG; Start 11/02/16 at 09:00 Multivitamins/ Thiamine HCl/ Folic Acid/Sodium Chloride (Mvi-12 Adult/ Vitamin B1/Folic Acid/NS) 1,011.2 ml @ 125 mls/ hr DAILY@09 IVPB Last administered on 11/06/16 09:00; Admin Dose 125 MLS/HR; Start 11/02/16 at 10:00 Lorazepam 1 mg 1 mg Q4 PRN IV CONTROL WITHDRAWAL SYMPTOMS; Start 11/02/16 at 08: 00 Pantoprazole/ Sodium Chloride (Protonix Iv/NS) 100 ml @ 10 mls/hr Q10H IV Last administered on 11/06/16 05:28; Admin Dose 10 MLS/HR; Start 11/02/16 at 12: 00 Sucralfate (Carafate Susp) 1 gm QID PO Last administered on 11/06/16 09:00; Admin Dose 1 GM; Start 11/04/16 at 18:30 PETR ALLEN MD Nov 06, 2016 11:23
[2016-11-06 12:31] LABS: HEMATOCRIT 27.8 % (42.0-52.0); HEMOGLOBIN 9.4 g/dl (14.0-18.0)
[2016-11-06 19:11] LABS: HEMATOCRIT 28.2 % (42.0-52.0); HEMOGLOBIN 9.7 g/dl (14.0-18.0)
[2016-11-07] VITALS (10 sets, daily range): BP systolic 107–120; BP diastolic 58–78; PULSE 58–78; RESP 17–18
[2016-11-07] MEDS: PANTOPRAZOLE IV 80 MG in SOD CHLORIDE 0.9% 100 ML IV SCH ×2 (01:42→16:20)
[2016-11-07 06:46] LABS: POTASSIUM 3.3 mmol/L (3.5-5.1)
[2016-11-07 06:49] LABS: CALCIUM 7.5 mg/dl (8.4-10.2); CREATININE 0.64 mg/dl (0.61-1.24)
[2016-11-07 07:01] LABS: BASOPHILS % 0.2 % (0.0-2.0); EOSINOPHILS # 0.1 10^3/ul (0.0-0.5); EOSINOPHILS % 1.4 % (0.0-7.0); HEMATOCRIT 27.7 % (42.0-52.0); HEMOGLOBIN 9.4 g/dl (14.0-18.0); LYMPHOCYTES # 1.2 10^3/ul (0.8-2.9); LYMPHOCYTES % 14.3 % (15.0-51.0); MEAN CORPUSCULAR HEMOGLOBIN 30.7 pg (29.0-33.0); MEAN CORPUSCULAR HGB CONC 33.9 g/dl (32.0-37.0); MEAN CORPUSCULAR VOLUME 90.6 fl (82.0-101.0); MEAN PLATELET VOLUME 7.8 fl (7.4-10.4); MONOCYTE # 0.9 10^3/ul (0.3-0.9); MONOCYTES % 10.8 % (0.0-11.0); NEUTROPHIL # 6.1 10^3/ul (1.6-7.5); NEUTROPHILS % 73.3 % (39.0-77.0); PLATELET COUNT 325 10^3/UL (140-440); RED BLOOD COUNT 3.05 10^6/ul (4.70-6.10); RED CELL DISTRIBUTION WIDTH 15.3 % (11.5-14.5); UNCORRECTED WBC 8.4 10^3/ul (4.8-10.8); WHITE BLOOD COUNT 8.4 10^3/ul (4.8-10.8)
[2016-11-07 07:06] LABS: CONDITION 1; LH ANALYZER COMMENTS 1
[2016-11-07] MEDS: OSELTAMIVIR 75 MG CAP PO SCH (08:56)
[2016-11-07] MEDS: SUCRALFATE (100 MG/ML) 10ML CUP PO SCH ×4 (08:56→20:08)
[2016-11-07] MEDS: MULTIVITAMINS 10 ML, THIAMINE 100 MG, FOLIC ACID 1 MG in SOD CHLORIDE 0.9% 1,000 ML IVPB SCH (09:02)
[2016-11-07] MEDS: SOD CHLORIDE 0.45% 1,000 ML IV SCH ×2 (09:47→20:09)
[2016-11-07] MEDS ORDERED: POTASSIUM CHLORIDE (SR) 20 MEQ TAB PO STA (10:12)
--- NOTE | 2016-11-07 11:17 | PDOCDIS ---
Discharge Instructions DIAGNOSIS Discharge Diagnosis: Gastric ulcer. Anemia. CONDITION Patient Condition: Stable HOME CARE INSTRUCTIONS: Diet Instructions: Regular FOLLOW UP/APPOINTMENTS Appointments 1. Segun Rasmussen MD Specialty: Internal Medicine Office Address: [address] [place] [address] Office 2. Liu Mejias MD Specialty: Gastroenterology Office Address: [address] [facility] [address] [facility] [address] [place] [address] Office OTHER ORDERS: Other Orders: 1. Take medications as per prescription. 2. Take a regular, preferably a bland diet. 3. Resume activities as tolerated. 4. Follow-up with your primary care physician in 2 weeks. If you do not have a primary care physician, please call Dr. Segun Rasmussen's office. 5. Follow-up with gastroenterology [Dr. Mejias] in 1 month. Please arrange for a repeat esophagogastroduodenoscopy in 2 months. 6. Avoid using alcohol. 7. Go to the nearest emergency room if you have significant black tarry stools , fresh blood in stools, or vomiting of blood. MATTHEW BURROUGHS NP Nov 07, 2016 11:17
[2016-11-07] MEDS ORDERED: FER325 PO (11:19)
[2016-11-07] MEDS ORDERED: CARAS PO (11:19)
[2016-11-07] MEDS ORDERED: PANT40TA3 PO (11:19)
--- NOTE | 2016-11-07 13:17 | RADRPT ---
PROCEDURE: Right upper extremity venous ultrasound CLINICAL INDICATION: Right arm pain and swelling, deep venous thrombosis TECHNIQUE: Ferrer scale, color doppler, spectral doppler ultrasound imaging of the venous system of the right upper extremity. Augmentation maneuvers were utilized. COMPARISON: No prior studies are available for comparison. FINDINGS: RIGHT: Internal jugular vein: Patent. Subclavian vein: Patent. Axillary vein: Patent. Brachial vein: Patent. Basilic vein: Thrombosed in the upper arm to the level of the antecubital fossa. Cephalic vein: Thrombosed within the forearm. Radial vein: Patent. Ulnar vein: Patent. IMPRESSION: Right upper arm basilic vein thrombus. Right forearm cephalic vein thrombus. Results were discussed with Nurse Laurita by telephone at 1313 hours on 11/07/[address] Merlin ladd RPTAT: AADD .Merlin Noriega MD, Date Time Electronically viewed and signed by .Merlin Noriega MD, on 11/07/2016 13:17 .B/
--- NOTE | 2016-11-07 13:18 | DS ---
DATE OF ADMISSION: 11/01/2016 DATE OF DISCHARGE: 11/07/2016 FINAL DIAGNOSES: 1. Symptomatic anemia secondary to gastrointestinal bleeding. 2. 1.5 cm antral gastric ulceration. 3. Influenza A. 4. Bbw-BR-kpcetiywz myocardial infarction, type 2 event. 5. Alcohol abuse. 6. Laceration in the occipital area. Status post stapling by ER. 7. Iron deficiency. CONSULTANTS: 1. Dr. Liu Mejias, gastroenterology 2. Dr. Parviz Gonsalves, Cardiology HOSPITAL COURSE: This is a 41-year-old male with no significant past medical history, but a history of alcohol abuse who came to the emergency room with chief complaint of dizziness, cough, as well as a fall with subsequent scalp injury. The patient verbalized that he started developing some dizziness, malaise, and cough for over 1 week. The patient subsequently syncopized in the shower with a laceration of his scalp. In the emergency room, the patient was noticed to have febrile illness. The patient was also noticed to have anemia with a hemoglobin and hematocrit of 6.6 and 19.3 respectively. Upon further interrogation, the patient verbalized that he has been having black tarry stools in the recent past. Provided the patient's history of present illness and the diagnostic findings, a clinical decision was made to admit the patient to inpatient setting to have him further evaluated. The patient was admitted to inpatient telemetry floor. A gastroenterology consult was called. The patient was also noticed to have elevated troponins upon presentation. Hence, a cardiology consult was called. The patient was started on a Protonix drip. The patient was given a total of 9 units of PRBCs during the hospital course. The patient underwent an esophagogastroduodenoscopy on 11/04/2014 that showed a 1.5 cm antral gastric ulceration with no stigmata of recent bleeding. Consequently, the patient was started on a mucosal barrier protectants in addition to proton pump inhibitors. The patient's pathology from gastric biopsy was negative for any malignancy or H pylori. The patient responded well to oral treatment with proton pump inhibitors and Carafate. The patient's H and H has remained stable since 2016. The patient was also evaluated for any underlying iron deficiency. The patient was noticed to have a low iron saturation and low TIBC. The patient was evaluated for syncope. The patient's syncope was concluded to be secondary to his symptomatic anemia. The patient underwent a 2-D echocardiogram that showed preserved left ventricular ejection fraction. The patient underwent a brain CT scan that showed no acute intracranial abnormality. The patient's scalp laceration was treated with stapling by the ER physician. The patient also has a history of ETOH abuse. The patient was maintained on a daily banana bag and p.r.n. benzodiazepines for any acute alcohol withdrawal delirium. The patient underwent a right upper quadrant ultrasound that was unremarkable. The patient's dizziness and malaise resolved with treatment of the underlying anemia. The patient was also incidentally found to have influenza A. Hence, the patient was started on neuraminidase inhibitors. The patient was found to have [id number] myocardial infarction. Consequently, cardiology was following the patient. However, the patient's latest troponins are normalized. It was concluded that the patient probably had a type 2 event and there was no evidence of any underlying type 1 event. The patient was not maintained on any aspirin because of underlying gastrointestinal bleed. Nevertheless, the patient's 2-D echocardiogram showed preserved left ventricular ejection fraction. The patient had a few febrile episodes during the hospital course. The patient remained afebrile since 11/03/2016 in the afternoon. The patient had a stable hospital course. The patient is stable to be discharged home. The patient denied any complaints at the time of discharge. The patient's scalp cody will be removed prior to discharge. DISCHARGE DISPOSITION AND PLAN: The patient will be discharged home today. The patient was instructed to take medications as per prescription. He was instructed to take a regular, preferably a bland, diet. He was instructed to resume activities as tolerated. He was instructed to follow up with his primary care physician in 2 weeks and if he does not have a primary care physician, please call Dr. Segun Rasmussen's office. The patient was instructed to follow up with Gastroenterology in 1 month and to arrange for repeat esophagogastroduodenoscopy in 2 months. He was instructed to avoid using alcohol. He was instructed to go to the nearest emergency room if he has any significant black tarry stools, fresh blood in stools, or any vomiting of blood. The patient verbalized understanding of his discharge instructions. CONDITION AT DISCHARGE: Stable. DISCHARGE MEDICATIONS: 1. Ferrous sulfate 325 mg p.o. b.i.d. 2. Protonix 40 mg p.o. b.i.d. 3. Carafate 1 g/10 mL p.o. q.i.d. PERTINENT LABORATORY, DIAGNOSTIC DATA, AND PROCEDURES: 1. Esophagogastroduodenoscopy. Clean-based 1.5 cm antral gastric ulcerations with no stigmata of recent bleeding or likelihood of rebleeding. 2. Gastric biopsy. Antral mucosa showing edge of an erosion/ulcer with granulation tissue reaction and acute inflammation. Reactive gastropathy of adjacent antral mucosa with patchy acute inflammation involving foveolar epithelium and adjacent lamina propria. No Helicobacter pylori. There was no evidence of malignancy. 3. 2-D echocardiogram. Ejection fraction of 55%. Normal left ventricular systolic function. Mild aortic valve regurgitation. 4. Stool for OB x1 positive. 5. Iron panel: Iron 41, TIBC 237, iron saturation 17. 6. Hemoglobin A1c 5.8. 7. Fasting lipid panel: Triglycerides 67, total cholesterol 83, LDL 44, HDL 26. 8. Influenza A and B positive for influenza A. 9. Blood culture x2 negative. 10. Urine culture inconclusive. 11. Latest CBC: WBC 8.4, hemoglobin 9.4, hematocrit 27.7, platelet count 325. 12. Latest BMP: Sodium 143, potassium 3.3, chloride 107, carbon dioxide 27, anion gap 12, BUN 6, creatinine 0.64, glucose 95, calcium 7.5, phosphorus 3.5, magnesium 2.2. At this time I would like to thank all the consultants for seeing the patient and providing clinical recommendations. The case and management of this patient was fully discussed with Dr. Mendoza. Approximately 40 minutes was spent on coordinating the discharge on this patient. MATTHEW MENDOZA MD, AM/JOHANA Conf#: [id number] DID#: [id number]
--- NOTE | 2016-11-07 13:28 | PN ---
Date/Time of Note Date/Time of Note DATE: 11/07/16 TIME: 13:26 Assessment/Plan VTE Prophylaxis VTE Prophylaxis Intervention: SCD's Lines/Catheters IV Catheter Type (from [facility]): Saline Lock Urinary Cath still in place: No Assessment/Plan Chief Complaint/Hosp Course 1. Symptomatic anemia secondary to gastrointestinal bleeding. Esophagogastroduodenoscopy showing gastric antral ulcer. Continue proton pump inhibitors and Carafate. Gastroenterology on the case. 2. Non-ST elevation myocardial infarction. Probably a type II event secondary to underlying severe anemia. 2D echocardiogram showing preserved left ventricular ejection fraction. Unable to use any aspirin or other antiplatelet drugs because of underlying anemia. Cardiology following. 3. Influenza A. S/P neuraminidase inhibitors. 4. Alcohol abuse. Continue daily multivitamins. Continue p.r.n. benzodiazepines for any alcohol withdrawal delirium. 5. Right upper extremity multiple DVTs. Unable to anticoagulate the patient because of underlying anemia. Will call vascular surgery consult. 6. Laceration of the occipital area. CT scan of the brain negative for any intracranial hemorrhage. It shows minimal soft tissue swelling in the left parietal vertex without evidence for any underlying calvarial fracture. Status post stapling by ER physician. 7. Fluid, electrolytes and nutrition. Continue bland diet. 8. Deep venous thrombosis prophylaxis with bilateral sequential compression devices. 9. Gastrointestinal prophylaxis. The patient is currently on Protonix drip. 10. Continue transfusion of blood products as needed. Continue to monitor H& H. Call Vascular Surgery for evaluation. Will hold the patient's discharge. The case was discussed with Dr. Fenton. The case was discussed with Gastroenterology. The patient's EGD did not show any active bleed. Hence the patient may be anticoagulated with minimal anticoagulation if needed, while watching the patient closely for any bleeding. Problems: Subjective 24 Hr Interval Summary Free Text/Dictation Denies any black tarry stools. The plan was to discharge the patient home today. However the patient complained about right upper extremity swelling and pain. Exam/Review of Systems Vital Signs Vitals Vital Signs Date Time Temp Pulse Resp B/P Pulse Ox O2 Delivery O2 Flow Rate FiO2 11/07/16 12:21 71 11/07/16 11:38 98.0 17 112/74 100 11/07/16 00:00 Room Air Intake and Output 11/06/16 11/06/16 11/07/16 15:00 23:00 07:00 Intake Total 420 ml 1100 ml Balance 420 ml 1100 ml Exam GENERAL: This is thin male lying in bed in no apparent distress. HEENT: Head normocephalic and atraumatic. Eyes: Anicteric sclerae. Conjunctivae clear. ENT: Nasal septum is midline. Oral mucosa is moist. NECK: Supple. No JVD noticed. RESPIRATORY: Bilaterally clear to auscultation. No adventitious breath sounds. No use of accessory muscles of respiration. CARDIAC: Regular rate and rhythm. No murmurs heard. ABDOMEN: Soft, nontender and nondistended. Bowel sounds positive in all 4 quadrants. GENITOURINARY: Deferred. EXTREMITIES: No cyanosis, no clubbing. LUE edema. Peripheral pulses palpable. NEUROLOGIC: The patient is awake, alert and oriented. Cranial nerves are grossly intact. SKIN: Pale. No skin rashes. Results Result Diagram: 11/07/16 0528 11/07/16 0528 Results 24 hrs Laboratory Tests Test 11/06/16 18:40 11/07/16 05:28 Hematocrit 28.2 L 27.7 L Hemoglobin 9.7 L 9.4 L Anion Gap 12 Basophils # 0.0 Basophils % 0.2 Blood Morphology Comment Blood Urea Nitrogen 6 L Calcium Level 7.5 L Carbon Dioxide Level 27 Chloride Level 107 Creatinine 0.64 Eosinophils # 0.1 Eosinophils % 1.4 Glucose Level 95 Lymphocytes # 1.2 Lymphocytes % 14.3 L Magnesium Level 2.3 Mean Corpuscular Hemoglobin 30.7 Mean Corpuscular Hemoglobin Concent 33.9 Mean Corpuscular Volume 90.6 Mean Platelet Volume 7.8 Monocytes # 0.9 Monocytes % 10.8 Neutrophils # 6.1 Neutrophils % 73.3 Nucleated Red Blood Cells # 0.0 Nucleated Red Blood Cells % 0.0 Platelet Count 325 # Potassium Level 3.3 L Red Blood Count 3.05 L Red Cell Distribution Width 15.3 H Sodium Level 143 White Blood Count 8.4 # Medications Medications Current Medications Sodium Chloride (1/2 NS) 1,000 ml @ 100 mls/hr Q10H IV Last administered on t 23:03; Admin Dose 100 MLS/HR; Start 11/01/16 at 23:47 Ondansetron HCl (Zofran Inj) 4 mg Q6H PRN IV NAUSEA AND/OR VOMITING Last administered on 11/05/16 01:20; Admin Dose 4 MG; Start 11/02/16 at 00:00 Morphine Sulfate (morphine) 2 mg Q4H PRN IV SEVERE PAIN LEVEL 7-10 Last administered on 11/05/16 01:20; Admin Dose 2 MG; Start 11/02/16 at 00:00 Docusate Sodium (Colace) 100 mg Q12H PRN PO CONSTIPATION; Start 11/02/16 at 00: 00 Zolpidem Tartrate 5 mg 5 mg QHS PRN PO SLEEP; Start 11/02/16 at 00:00 Multivitamins/ Thiamine HCl/ Folic Acid/Sodium Chloride (Mvi-12 Adult/ Vitamin B1/Folic Acid/NS) 1,011.2 ml @ 125 mls/ hr DAILY@09 IVPB Last administered on 11/07/16 09:02; Admin Dose 125 MLS/HR; Start 11/02/16 at 10:00 Lorazepam (Ativan) 1 mg Q4 PRN IV CONTROL WITHDRAWAL SYMPTOMS; Start 11/02/16 at 08:00 Sucralfate (Carafate Susp) 1 gm QID PO Last administered on 11/07/16 13:08; Admin Dose 1 GM; Start 11/04/16 at 18:30 Pantoprazole (Protonix Iv) 40 mg BID@06,18 IV ; Start 11/07/16 at 18:00 MATTHEW BURROUGHS NP Nov 07, 2016 13:28
[2016-11-07] MEDS ORDERED: ENOXAPARIN 80 MG/0.8 ML SYG SC SCH (14:30)
--- NOTE | 2016-11-07 14:34 | CONS ---
Date/Time of Note Date/Time of Note DATE: 11/07/16 TIME: 14:32 Assessment/Plan Assessment/Plan Additional Assessment/Plan DVT * Right upper arm basilic vein thrombus. * Right forearm cephalic vein thrombus. * Anticoagulate per HemeOnc or Hospitalist instructions * Okay to anticoagulate and monitor hemoglobin * Antral ulcer clean with no stigmata Anemia, evaluate for UGIB * Monitor H&H every 6 hours, transfuse 2 units for hemoglobin less than 7.5 * Continue PPI drip and Carafate 4 times daily * s/p EGD: 1. Clean base 1.5 antral gastric ulcer tomorrow Dr. Mejias 2. Biopsies negative for malignancy and H. pylori Syncope * Likely secondary to anemia EtOH abuse * Encourage abstinence Lacerations in the posterior occiput and left occiput status post repair Fever with malaise, improving Patient stable from a GI standpoint Further recommendations depend on clinical course Patient is in collaboration with Dr. Mejias Consultation Date/Type/Reason Admit Date/Time Nov 01, 2016 at 22:44 Initial Consult Date 11/02/16 Type of Consultation: Gastroenterology Referring Provider: YANETH AGUIAR 24 HR Interval Summary Free Text/Dictation 2 DVTs noted in right arm Okay to anticoagulate and monitor hemoglobin Antral ulcer clean with no stigmata Pathology negative for malignancy and H. pylori Exam/Review of Systems Vital Signs Vitals Vital Signs Date Time Temp Pulse Resp B/P Pulse Ox O2 Delivery O2 Flow Rate FiO2 11/07/16 12:21 71 11/07/16 11:38 98.0 17 112/74 100 11/07/16 00:00 Room Air Intake and Output 11/06/16 11/06/16 11/07/16 15:00 23:00 07:00 Intake Total 420 ml 1100 ml Balance 420 ml 1100 ml Exam Constitutional: alert, oriented, well developed Head: normocephalic Eyes: EOMI ENMT: nl external ears & nose, nl lips & teeth, nl nasal mucosa & septum Respiratory: normal air movement Cardiovascular: regular rate and rhythm Gastrointestinal: non-tender, soft Neurological: PHOTOGRAPHIC LABORATORY TECHNICIAN II-XII intact Results Result Diagram: 11/07/16 0528 11/07/16 0528 Results 24 hrs Laboratory Tests Test 11/06/16 18:40 11/07/16 05:28 Hematocrit 28.2 L 27.7 L Hemoglobin 9.7 L 9.4 L Anion Gap 12 Basophils # 0.0 Basophils % 0.2 Blood Morphology Comment Blood Urea Nitrogen 6 L Calcium Level 7.5 L Carbon Dioxide Level 27 Chloride Level 107 Creatinine 0.64 Eosinophils # 0.1 Eosinophils % 1.4 Glucose Level 95 Lymphocytes # 1.2 Lymphocytes % 14.3 L Magnesium Level 2.3 Mean Corpuscular Hemoglobin 30.7 Mean Corpuscular Hemoglobin Concent 33.9 Mean Corpuscular Volume 90.6 Mean Platelet Volume 7.8 Monocytes # 0.9 Monocytes % 10.8 Neutrophils # 6.1 Neutrophils % 73.3 Nucleated Red Blood Cells # 0.0 Nucleated Red Blood Cells % 0.0 Platelet Count 325 # Potassium Level 3.3 L Red Blood Count 3.05 L Red Cell Distribution Width 15.3 H Sodium Level 143 White Blood Count 8.4 # Medications Medications Current Medications Sodium Chloride (1/2 NS) 1,000 ml @ 100 mls/hr Q10H IV Last administered on 23:03; Admin Dose 100 MLS/HR; Start 11/01/16 at 23:47 Ondansetron HCl (Zofran Inj) 4 mg Q6H PRN IV NAUSEA AND/OR VOMITING Last administered on 11/05/16 01:20; Admin Dose 4 MG; Start 11/02/16 at 00:00 Morphine Sulfate (morphine) 2 mg Q4H PRN IV SEVERE PAIN LEVEL 7-10 Last administered on 11/05/16 01:20; Admin Dose 2 MG; Start 11/02/16 at 00:00 Docusate Sodium (Colace) 100 mg Q12H PRN PO CONSTIPATION; Start 11/02/16 at 00: 00 Zolpidem Tartrate 5 mg 5 mg QHS PRN PO SLEEP; Start 11/02/16 at 00:00 Multivitamins/ Thiamine HCl/ Folic Acid/Sodium Chloride (Mvi-12 Adult/ Vitamin B1/Folic Acid/NS) 1,011.2 ml @ 125 mls/ hr DAILY@09 IVPB Last administered on 11/07/16 09:02; Admin Dose 125 MLS/HR; Start 11/02/16 at 10:00 Lorazepam (Ativan) 1 mg Q4 PRN IV CONTROL WITHDRAWAL SYMPTOMS; Start 11/02/16 at 08:00 Sucralfate (Carafate Susp) 1 gm QID PO Last administered on 11/07/16t 13:08; Admin Dose 1 GM; Start 11/04/16 at 18:30 Pantoprazole (Protonix Iv) 40 mg BID@06,18 IV ; Start 11/07/16 at 18:00 Enoxaparin Sodium (Lovenox) 70 mg Q24H SC ; Start 11/07/16 at 14:30 LEAH MOREIRA Nov 07, 2016 14:34
[2016-11-07] MEDS ORDERED: PANTOPRAZOLE 40 MG INJ IV SCH (18:00)
--- NOTE | 2016-11-07 23:56 | CONS ---
DATE OF ADMISSION: 11/01/2016 DATE OF CONSULTATION: REASON FOR CONSULTATION: Superficial venous thrombosis. HISTORY OF PRESENT ILLNESS: This is a 41-year-old male with a history of alcohol abuse, works in a grocery store, was admitted because of a syncopal episode and severe anemia. Subsequently was found to have GI bleeding, which has been worked up. Part of his workup was found to have swelling of th e right upper extremity, had an ultrasound, which showed thrombosed right arm basilic at the antecub ital fossa and thrombosed cephalic vein in the forearm. The patient's hemoglobin has been stable fo r the past several days between 9 to 10. The patient is currently being treated with Lovenox. PAST MEDICAL HISTORY: Significant for alcohol use. ALLERGIES: NONE. SOCIAL HISTORY: Positive for alcohol use. MEDICATION: List reviewed. PHYSICAL EXAMINATION: VITAL SIGNS: Blood pressure is 126/60, pulse is 80, respirations 18. CARDIOVASCULAR: Normal S1, S2. No murmurs, gallops, or rubs. LUNGS: Clear. ABDOMEN: Soft. EXTREMITIES: Warm. Right arm has minimal swelling. LABORATORY DATA: Significant for a hemoglobin of 7.4, platelet count is 329. Normal coagulation fa ctors. IMPRESSION: Deep vein thrombosis right basilic vein at the antecubital fossa and cephalic vein in t he forearm. RECOMMENDATIONS: This patient should be treated at least with aspirin if there is no contraindicati on with respect to GI bleeding. Should also be treated with Coumadin or Xarelto for 3 months. Walden mckayla, if there is any chance of bleeding, then the patient should just be treated with antiplatelets. Discussed with the patient. Will discuss with the referring physicians. Dictated By: LATASHA ROSALES MD FM/NTS Conf#: [id number] DID#: [id number] CC: YANETH AGUIAR MD;*EndCC*
[2016-11-08] MEDS: PANTOPRAZOLE IV 80 MG in SOD CHLORIDE 0.9% 100 ML IV SCH (01:04)
[2016-11-08] MEDS: SOD CHLORIDE 0.45% 1,000 ML IV SCH (05:38)
[2016-11-08 06:34] LABS: BASOPHILS % 0.2 % (0.0-2.0); EOSINOPHILS # 0.2 10^3/ul (0.0-0.5); HEMATOCRIT 25.6 % (42.0-52.0); HEMOGLOBIN 8.8 g/dl (14.0-18.0); LYMPHOCYTES # 1.3 10^3/ul (0.8-2.9); MEAN CORPUSCULAR HEMOGLOBIN 30.8 pg (29.0-33.0); MEAN CORPUSCULAR HGB CONC 34.3 g/dl (32.0-37.0); MEAN CORPUSCULAR VOLUME 89.8 fl (82.0-101.0); MEAN PLATELET VOLUME 7.4 fl (7.4-10.4); MONOCYTE # 0.7 10^3/ul (0.3-0.9); NEUTROPHIL # 5.5 10^3/ul (1.6-7.5); NEUTROPHILS % 71.8 % (39.0-77.0); PLATELET COUNT 367 10^3/UL (140-440); RED BLOOD COUNT 2.85 10^6/ul (4.70-6.10); RED CELL DISTRIBUTION WIDTH 14.6 % (11.5-14.5); UNCORRECTED WBC 7.7 10^3/ul (4.8-10.8); WHITE BLOOD COUNT 7.7 10^3/ul (4.8-10.8)
[2016-11-08 06:36] LABS: POTASSIUM 3.6 mmol/L (3.5-5.1)
[2016-11-08 06:38] LABS: CREATININE 0.67 mg/dl (0.61-1.24)
[2016-11-08 06:39] LABS: CALCIUM 7.9 mg/dl (8.4-10.2)
[2016-11-08 06:46] LABS: CONDITION 1; LH ANALYZER COMMENTS 1
[2016-11-08 06:48] LABS: MAGNESIUM 2.3 mg/dl (1.7-2.5); PHOSPHORUS 3.5 mg/dl (2.5-4.9)
[2016-11-08 08:07] VITALS: BP 111/73; RESP 19
[2016-11-08] MEDS: SUCRALFATE (100 MG/ML) 10ML CUP PO SCH (08:30)
[2016-11-08] MEDS ORDERED: ASPI325T4 PO (08:59)
[2016-11-08] MEDS ORDERED: ASPIRIN 325 MG TAB PO SCH (09:00)
--- NOTE | 2016-11-08 10:07 | DS ---
DATE OF ADMISSION: 11/01/2016 DATE OF DISCHARGE: 11/08/2016 FINAL DIAGNOSES: 1. Symptomatic anemia secondary to gastrointestinal bleeding. 2. 1.5 cm antral gastric ulceration. 3. Influenza A. 4. [id number] myocardial infarction, type 2 event. 5. Alcohol abuse. 6. Laceration in the occipital area. Status post stapling by ER. 7. Iron deficiency. 8. Right upper extremity multiple deep vein thromboses. CONSULTANTS: 1. Dr. Liu Mejias, gastroenterology 2. Dr. Parviz Gonsalves, cardiology 3. Dr. Ray Benavides, vascular surgery HOSPITAL COURSE: This is a 41-year-old male with no significant past medical history, but a history of alcohol abuse who came to the emergency room with chief complaint of dizziness, cough, as well as a fall with subsequent scalp injury. The patient verbalized that he started developing some dizziness, malaise, and cough for over 1 week. The patient subsequently syncopized in the shower with a laceration of his scalp. In the emergency room, the patient was noticed to have febrile illness. The patient was also noticed to have anemia with a hemoglobin and hematocrit of 6.6 and 19.3 respectively. Upon further interrogation, the patient verbalized that he has been having black tarry stools in the recent past. Provided the patient's history of present illness and the diagnostic findings, a clinical decision was made to admit the patient to inpatient setting to have him further evaluated. The patient was admitted to inpatient telemetry floor. A gastroenterology consult was called. The patient was also noticed to have elevated troponins upon presentation. Hence, a cardiology consult was called. The patient was started on a Protonix drip. The patient was given a total of 9 units of PRBCs during the hospital course. The patient underwent an esophagogastroduodenoscopy on 11/04/2014 that showed a 1.5 cm antral gastric ulceration with no stigmata of recent bleeding. Consequently, the patient was started on a mucosal barrier protectants in addition to proton pump inhibitors. The patient's pathology from gastric biopsy was negative for any malignancy or H pylori. The patient responded well to oral treatment with proton pump inhibitors and Carafate. The patient's H and H has remained stable since 2016. The patient was also evaluated for any underlying iron deficiency. The patient was noticed to have a low iron saturation and low TIBC. The patient was evaluated for syncope. The patient's syncope was concluded to be secondary to his symptomatic anemia. The patient underwent a 2-D echocardiogram that showed preserved left ventricular ejection fraction. The patient underwent a brain CT scan that showed no acute intracranial abnormality. The patient's scalp laceration was treated with stapling by the ER physician. The patient also has a history of ETOH abuse. The patient was maintained on a daily banana bag and p.r.n. benzodiazepines for any acute alcohol withdrawal delirium. The patient underwent a right upper quadrant ultrasound that was unremarkable. The patient's dizziness and malaise resolved with treatment of the underlying anemia. The patient was also incidentally found to have influenza A. Hence, the patient was started on neuraminidase inhibitors. The patient was found to have [id number] myocardial infarction. Consequently, cardiology was following the patient. However, the patient's latest troponins are normalized. It was concluded that the patient probably had a type 2 event and there was no evidence of any underlying type 1 event. The patient was not maintained on any aspirin because of underlying gastrointestinal bleed. Nevertheless, the patient's 2-D echocardiogram showed preserved left ventricular ejection fraction. The patient had a few febrile episodes during the hospital course. The patient remained afebrile since 11/03/2016 in the afternoon. The patient had a stable hospital course. The patient is stable to be discharged home. The patient denied any complaints at the time of discharge. The patient's scalp cody were removed prior to discharge. The patient had discharge orders on 11/07/2016. However, the patient's discharge was held since the patient had right upper extremity edema. The patient's right upper extremity venous Doppler study showed a right upper arm basilic vein thrombosis and right forearm cephalic vein thrombus. Consequently , the patient was evaluated by vascular surgery. Vascular surgery recommended anticoagulation with Coumadin or Xarelto for 3 months. However, in the setting of the current GI bleed that required 9 units of PRBC transfusion, and evidence of gastric antral ulcer, vascular surgery agreed on treating the patient with at least antiplatelets for a period of 3 months. Hence, the patient was started on antiplatelets. The patient's H and H remained stable. DISCHARGE DISPOSITION AND PLAN: The patient will be discharged home today. The patient was instructed to take medications as per prescription. He was instructed to take a full dose aspirin for a period of at least 90 days. He was instructed to take a regular, preferably a bland, diet. He was instructed to resume activities as tolerated. He was instructed to follow up with his primary care physician in 2 weeks and if he does not have a primary care physician, please call Dr. Segun Rasmussen's office. The patient was instructed to follow up with Gastroenterology in 1 month and to arrange for repeat esophagogastroduodenoscopy in 2 months. He was instructed to avoid using alcohol. He was instructed to go to the nearest emergency room if he has any significant black tarry stools, fresh blood in stools, or any vomiting of blood. The patient verbalized understanding of his discharge instructions. CONDITION AT DISCHARGE: Stable. DISCHARGE MEDICATIONS: 1. Ferrous sulfate 325 mg p.o. b.i.d. 2. Protonix 40 mg p.o. b.i.d. 3. Carafate 1 g/10 mL p.o. q.i.d. 4. Aspirin 325 mg p.o. daily. PERTINENT LABORATORY, DIAGNOSTIC DATA, AND PROCEDURES: 1. Esophagogastroduodenoscopy. Clean-based 1.5 cm antral gastric ulcerations with no stigmata of recent bleeding or likelihood of rebleeding. 2. Gastric biopsy. Antral mucosa showing edge of an erosion/ulcer with granulation tissue reaction and acute inflammation. Reactive gastropathy of adjacent antral mucosa with patchy acute inflammation involving foveolar epithelium and adjacent lamina propria. No Helicobacter pylori. There was no evidence of malignancy. 3. 2-D echocardiogram. Ejection fraction of 55%. Normal left ventricular systolic function. Mild aortic valve regurgitation. 4. Stool for OB x1 positive. 5. Iron panel: Iron 41, TIBC 237, iron saturation 17. 6. Hemoglobin A1c 5.8. 7. Fasting lipid panel: Triglycerides 67, total cholesterol 83, LDL 44, HDL 26. 8. Influenza A and B positive for influenza A. 9. Blood culture x2 negative. 10. Urine culture inconclusive. 11. Latest CBC: WBC 8.4, hemoglobin 9.4, hematocrit 27.7, platelet count 325. 12. Latest BMP: Sodium 143, potassium 3.3, chloride 107, carbon dioxide 27, anion gap 12, BUN 6, creatinine 0.64, glucose 95, calcium 7.5, phosphorus 3.5, magnesium 2.2. 13. Right upper extremity venous Doppler study. Right upper arm basilic vein thrombus. Right forearm cephalic vein thrombus. At this time I would like to thank all the consultants for seeing the patient and providing clinical recommendations. The case and management of this patient was fully discussed with Dr. Mendoza. Approximately 40 minutes was spent on coordinating the discharge on this patient. MATTHEW MENDOZA MD, AM/JOHANA Conf#: [id number] DID#: [id number] MTDD
--- NOTE | 2016-11-08 11:33 | PN ---
Date/Time of Note Date/Time of Note DATE: 11/08/16 TIME: 11:32 Assessment/Plan Lines/Catheters IV [facility]ter [facility] (from [facility] Peripheral IV Dial in Place (from [facility]): No Assessment/Plan Chief Complaint/Hosp Course IMPRESSION: Deep vein thrombosis right basilic vein at the antecubital fossa and cephalic vein in the forearm. RECOMMENDATIONS: This patient should be treated at least with aspirin if there is no contraindication with respect to GI bleeding. Should also be treated with Coumadin or Xarelto for 3 months. However, if there is any chance of bleeding, then the patient should just be treated with antiplatelets. Discussed with the patient. Will discuss with the referring physicians. Problems: Subjective 24 Hr Interval Summary Constitutional: improved Pain Control: mild Exam/Review of Systems Vital Signs Vitals Vital Signs Date Time Temp Pulse Resp B/P Pulse Ox O2 Delivery O2 Flow Rate FiO2 11/08/16 08:07 97.1 19 111/73 98 11/07/16 19:15 78 Room Air Intake and Output 11/07/16 11/07/16 11/08/16 15:00 23:00 07:00 Intake Total 1905 ml 1520 ml Output Total 1000 ml Balance 905 ml 1520 ml Exam ENMT: mucosa pink and moist, nl external ears & nose, nl lips & teeth, nl nasal mucosa & septum Neck: non-tender, supple Respiratory: clear to auscultation, normal air movement Cardiovascular: nl pulses, regular rate and rhythm Gastrointestinal: nl liver, spleen, non-tender, soft Results Result Diagram: 11/08/16 0555 11/08/16 0555 LATASHA ROSALES MD Nov 08, 2016 11:32
== END 2016-11-08 12:45 | disposition home or self-care (01) | DRG 377 ==
LOC: E/R 15:58 → TEL 22:44 → MS2 11-07 19:05
PROVIDERS: ADMIT Internal Medicine; ATTEND Internal Medicine
PROC: 0DB68ZX Excision of Stomach, Via Natural or Artificial Opening Endoscopic, Diagnostic (ICD-10-PCS; principal; 2016-11-01)
PROC: 0HQ0XZZ Repair Scalp Skin, External Approach (ICD-10-PCS; 2016-11-01)
PROC: 30243N1 Transfusion of Nonautologous Red Blood Cells into Central Vein, Percutaneous Approach (ICD-10-PCS; 2016-11-01)
DX: K25.4 Chronic or unspecified gastric ulcer with hemorrhage (principal); I21.4 Non-ST elevation (NSTEMI) myocardial infarction; I82.611 Acute embolism and thrombosis of superficial veins of right upper extremity; E83.39 Other disorders of phosphorus metabolism; D50.0 Iron deficiency anemia secondary to blood loss (chronic); F10.10 Alcohol abuse, uncomplicated; R55 Syncope and collapse; J10.1 Influenza due to other identified influenza virus with other respiratory manifestations; E83.51 Hypocalcemia; S01.01XA Laceration without foreign body of scalp, initial encounter; W18.39XA Other fall on same level, initial encounter; Y92.012 Bathroom of single-family (private) house as the place of occurrence of the external cause
CPT/HCPCS: 36415; 36430; 70450; 71010; 76705; 76775; 80048; 80053; 80061; 80307; 81001; 81003; 82270; 82607; 82746; 83010; 83036; 83540; 83605; 83615; 83735; 84100; 84484; 85014; 85018; 85025; 85610; 85730; 86644; 86850; 86900; 86901; 86920; 87040; 87086; 87400; 93005; 93306; 93971; 96374; 96375; C9113; J1200; J2270; J2405; J3370; J3411; J7030; J7040; J7050; P9016